=== PATIENT | male | born 1995 | race Caucasian/White ===

== ENCOUNTER 2016-06-30 05:20 | Emergency (ER) | payer SELFPAY ==
[~2016-06-30] VITALS: Ht 180.3 cm; Wt 127.0 kg
[~2016-06-30 05:20] MED LIST: ALBU8.5H2 IH; AZIT-21 PO; AZIT250T5 PO; CEPH500C PO; CEPH500T PO; CIPR500T78 PO; CYCL10TA9 PO; HYDR-3454 PO; HYDR-3714 PO; HYDR-707 PO; IBP800T PO; IBUP800T26 PO; LACT1CAP74 PO; LEVO500T78 PO; METR500T PO; ONDA-42 SL; PRD20T PO; SULF1TAB38 PO; TRAM-21 PO; TRAM50TA2 PO
[2016-06-30] MEDS ORDERED: SUMAtriptan 50 MG (IMITREX) TAB PO ONE (06:30)
[2016-06-30] MEDS ORDERED: TETRACAINE 0.5% OPHTH SOLN 4 ML BTL (SINGLE DOSE ONLY) OP ONE (06:30)
--- NOTE | 2016-06-30 06:54 | ED Headache ---
General Chief Complaint: Eye Problems Stated Complaint: LEFT EYE PAIN,VISION BLURRY,TENDER TO TOUCH Nursing Triage Note: pt reports pain/pressure behind left eye starting wednesday. no known injury. while at work tonight, he began having blurry vision in left eye intermittently. Nursing Sepsis Screen: No Definite Risk Source: patient Exam Limitations: no limitations History of Present Illness Time seen by provider: 06:10 Initial Comments Here with report of 2 days of pain behind the left eye and headache. States the pain waxes and wanes. Described as a pressure pushing out behind the left eye. When the pain is worse he reports that he has some vision changes. Did take an aspirin which helped a little. 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 Currently he does not have blurred vision. Timing/Duration: waxing and waning, other (2 days) Severity/Quality: moderate, pressure Location: occipital Prior Headaches/Recent Trauma: occasional headaches Modifying Factors: worse with exposure to light, improves with rest Associated Symptoms: No confusion, No facial pain, No fever/chills, No nausea/ vomiting, No nasal congestion, No stiff neck, No weakness Allergies and Home Medications Allergies Coded Allergies: No Known Drug Allergies (Unverified , 06/30/16) Home Medications No Active Prescriptions or Reported Meds Constitutional: see HPI, No chills, No fever Eyes: See HPI, Blurred Vision, Pain Ears, Nose, Mouth, Throat: no symptoms reported Respiratory: no symptoms reported Cardiovascular: no symptoms reported Gastrointestinal: no symptoms reported Musculoskeletal: no symptoms reported Psychiatric/Neurological: See HPI, Headache, Denies Weakness Past Boyegcw-Jwdvcq-Ptrgtw Hx Patient Social History Alcohol Use: Occasionally Uses Recreational Drug Use: No Smoking Status: Never a Smoker 2nd Hand Smoke Exposure: No Recent Foreign Travel: No Contact w/Someone Who Travel: No Recent Infectious Disease Expo: No Recent Hopitalizations: Yes Immunizations Up To Date Tetanus Booster (TDap): Unknown Seasonal Allergies Seasonal Allergies: No Surgeries HX Surgeries: Yes (PYLORIC STENOSIS, BILAT KNEE SCOPE, COLONSCOPY) Surgeries: Abdominal, Orthopedic, Tonsillectomy Respiratory Hx Respiratory Disorders: No Cardiovascular Hx Cardiac Disorders: No Cardiac Disorders: Hypertension Neurological Hx Neurological Disorders: No Reproductive System Hx Reproductive Disorders: No Genitourinary Hx Genitourinary Disorders: No Gastrointestinal Hx Gastrointestinal Disorders: Yes Gastrointestinal Disorders: Colitis, Gastroesophageal Reflux Musculoskeletal Hx Musculoskeletal Disorders: No Endocrine Hx Endocrine Disorders: No HEENT HX ENT Disorders: No Cancer Hx Cancer: No Psychosocial Hx Psychiatric Problems: No Integumentary HX Skin/Integumentary Disorder: No Blood Transfusions Hx Blood Disorders: No Family Medical History Significant Family History: Hypertension, Other Conditions/Hx Physical Exam Vital Signs Vital Sign - Last 12Hours 06/30/16 05:34 Temp 97.2 Pulse 88 Resp 16 B/P (MAP) 132/89 Capillary Refill : Less Than 3 Seconds General Appearance: WD/WN, no apparent distress HEENT: PERRL/EOMI, TMs normal, pharynx normal Neck: full range of motion, supple Cardiovascular: regular rate, rhythm, no murmur Respiratory: lungs clear, normal breath sounds Gastrointestinal: non tender, soft Psychiatric: alert, oriented x 3 Crainal Nerves: normal hearing, normal speech, PERRL Coordination/Gait: normal gait Motor/Sensory: no motor deficit, no sensory deficit Skin: normal color, warm/dry Progress/Results/Core Measures Results/Orders My Orders Orders - LISA FERNANDEZ MD Sumatriptan Tablet (Imitrex Tablet) (06/30/16 06:30) Tetracaine 0.5% Ophth Dorota Sdv (Tetracai (06/30/16 06:30) Medications Given in ED Current Medications Medications Dose Ordered Sig/Froylan Route Start Time Stop Time Status Last Admin Dose Admin Sumatriptan Succinate 50 mg ONCE ONCE PO 06/30/16 06:30 06/30/16 06:31 DC 06/30/16 06:34 50 MG Tetracaine HCl 1 OR 2 DROPS INTO AFFEC... ONCE ONCE OP 06/30/16 06:30 06/30/16 06:31 DC 06/30/16 06:35 4 ML Vital Signs/I&O Vital Sign - Last 12Hours 06/30/16 05:34 Temp 97.2 Pulse 88 Resp 16 B/P (MAP) 132/89 Blood Pressure Mean: 103 Progress Note : Progress Note Seen and evaluated. Visual acuity shows 20/20 with both eyes and 20/40 with each individual. Rodrigo-Pen evaluation shows pressure to be [address]. Patient did have CT head and orbits ordered and that is pending. Imitrex 50 mg by mouth given. Monitor patient. 0712: States pain is actually much better. Discharged home with return precautions. Patient verbalize understanding instructions and agreement with plan. Diagnostic Imaging Diagonstic Imaging: CT Plain Films/CT/US/NM/MRI: head Comments No intracranial hemorrhage, mass effect or edema. No evidence of acute cortical stroke. Visualized mastoid air cells are clear. Focal areas of mild mucosal thickening in the paranasal sinuses. Reviewed: Reviewed [place] Hawk Study, Reviewed by Me Diagonstic Imaging: CT Plain Films/CT/US/NM/MRI: other (orbits) Comments The orbits are unremarkable for a noncontrast CT. The ocular globes appear intact. No evidence for fracture. Areas of mild mucosal thickening in the paranasal sinuses. Reviewed: Reviewed [place] Hawk Study, Reviewed by Me Departure Impression Impression: Primary Impression: Migraine headache Qualified Codes: G43.009 - Migraine without aura, not intractable, without status migrainosus Disposition: 01 HOME, SELF-CARE Condition: Improved Departure-Patient Inst. Decision time for Depature: 07:13 Referrals: [facility] (PCP/Family) Primary Care Physician Patient Instructions: Migraine Headache (DC) Add. Discharge Instructions: All discharge instructions reviewed with patient and/or family. Voiced understanding. Take ibuprofen 800 mg every 8 hours as needed for headache or pain. You should also start taking Claritin or the generic loratadine 10 mg tablet daily as needed for allergy symptoms. Follow up with your DrSarbjit in a few days for recheck. Return for worse pain, fever, vomiting, weakness, breathing problems or other concerns as needed. Scripts No Active Prescriptions or Reported Meds Work/School Note: Work Release Form Date Seen in the Emergency Department: Jun 30, 2016 Return to Work: Jun 30, 2016 Restrictions: No Restrictions LISA FERNANDEZ MD Jun 30, 2016 06:54
[2016-06-30 07:20] VITALS: BP 140/86
--- NOTE | 2016-06-30 07:41 | Diagnostic Imaging Report ---
PROCEDURE: CT orbit without. TECHNIQUE: Multiple contiguous axial images were obtained through the facial bones without the use of intravenous contrast. INDICATION: Left eye pain and pressure. Blurry vision for two days. EXAMINATION: CT of the orbits dated 06/22/2016. FINDINGS: There are no fractures appreciated. Visualized osseous structures are well aligned. There are no air-fluid levels within the sinuses. Minimal mucosal thickening seen throughout the paranasal sinuses. Visualized mastoid air cells are clear. Both orbits and globes appear intact and unremarkable. No surrounding fat stranding is appreciated. IMPRESSION: 1. Minimal mucosal thickening consistent with chronic sinus disease with no acute process appreciated. Given history of blurry vision if there is continued clinical question, MRI of the brain could provide further characterization if clinically warranted. Findings agree with the preliminary report. Dictated by: Dictated on workstation # [id number]
--- NOTE | 2016-06-30 08:00 | Diagnostic Imaging Report ---
PROCEDURE: CT head without contrast. TECHNIQUE: Multiple contiguous axial images were obtained through the brain without the use of intravenous contrast. INDICATION: Left eye pain and pressure for several days. Blurry vision. EXAMINATION: CT brain without contrast 06/30/2016 COMPARISON: 08/13/2010 FINDINGS: FINDINGS: Multiple axial images of the brain without contrast. There is no evidence for acute hemorrhage or infarct. There is no mass, mass effect, midline shift or hydrocephalus. The paranasal sinuses and mastoid air cells demonstrate no acute abnormality. IMPRESSION: No acute intracranial process. Findings agree with the preliminary report. Dictated by: Dictated on workstation # [id number]
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
--- OUTSIDE RECORDS SUMMARY | 2016-07-14 19:50 | XMS REPORT ---
Author Author ANTOINE ALEXANDER [facility] Address Unknown Care Team Providers Care Poultry Hanger Name Role Phone ANTOINE ALEXANDER Unavailable PROBLEMS Type Condition ICD9-CM Code [id number] Code Onset Dates Condition Status SNOMED Code Problem Urinary frequency 788.41 Active 154706758 Problem Other general medical examination for administrative purposes V70.3 Active 89461523 Problem Pain in joint, forearm 719.43 Active 856058602 Assessment Dental examination Z01.20 Feb, Active 931438851 Problem Blood in stool 578.1 Active 319378124 Problem Unspecified ulcerative colitis 556.9 Active [id number] ALLERGIES Substance Reaction Event Type Date Status N.K.D.A. Unknown Non Drug Allergy Feb, Unknown SOCIAL HISTORY No smoking Hx information available PLAN OF CARE VITAL SIGNS Blood pressure systolic 129 mmHg 2016-02-13 Blood pressure diastolic 89 mmHg 2016-02-13 MEDICATIONS Medication Instructions Dosage Frequency Start Date End Date Duration Status Amoxicillin 500 MG Orally Three times a day 1 capsule 8h 7 days Active RESULTS No Results PROCEDURES Procedure Date Ordered Related Diagnosis Body Site LTD ORAL EVALUATION - PROBLEM FOCUS Feb 13, 2016 PANORAMIC FILM SEE ALSO CODE 08702 Feb 13, 2016 IMMUNIZATIONS No Known Immunizations
== END 2016-06-30 07:22 | disposition home or self-care (01) ==
LOC: EDUNIT# 05:20 → ER 05:24
DX: G43.909 Migraine, unspecified, not intractable, without status migrainosus (principal); I10 Essential (primary) hypertension
CPT/HCPCS: 70450; 70480; 99282

== ENCOUNTER 2016-08-12 01:54 | Emergency (ER) | payer OTHER ==
[~2016-08-12] VITALS: Ht 180.3 cm; Wt 127.0 kg
--- NOTE | 2016-08-12 03:56 | ED GU-Male ---
General Chief Complaint: -Male Stated Complaint: SLIPPED AT WORK & HIT PRIVATE PARTS ON MACHINERY Nursing Triage Note: Pt reports caught genitals on bracket at work. Has used an ice pack. Pt states blood in urine. Source: patient Exam Limitations: no limitations History of Present Illness Time seen by provider: 02:00 Initial Comments This 21-year-old young man presents to the emergency room with injury to the scrotum. 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 He slipped and struck his right scrotum on a metal bracket holding pipes. He had immediate pain in the right testicular area. He applied ice which improved the pain but he then urinated blood. He immediately became more concerned and presented to the emergency room. He rates his pain at the right testicle as 7/10. He denies any penile pain. Allergies and Home Medications Allergies Coded Allergies: No Known Drug Allergies (Unverified , 06/30/16) Home Medications No Active Prescriptions or Reported Meds Constitutional: no symptoms reported EENTM: no symptoms reported Respiratory: no symptoms reported Cardiovascular: no symptoms reported Gastrointestinal: no symptoms reported Genitourinary: see HPI Musculoskeletal: no symptoms reported Skin: no symptoms reported Psychiatric/Neurological: No Symptoms Reported Past Emjyjbd-Mxfkzl-Mpltxx Hx Patient Social History Alcohol Use: Occasionally Uses Recreational Drug Use: No Smoking Status: Never a Smoker 2nd Hand Smoke Exposure: No Recent Foreign Travel: No Contact w/Someone Who Travel: No Recent Infectious Disease Expo: No Recent Hopitalizations: Yes Immunizations Up To Date Tetanus Booster (TDap): Unknown Seasonal Allergies Seasonal Allergies: No Surgeries HX Surgeries: Yes (PYLORIC STENOSIS, BILAT KNEE SCOPE, COLONSCOPY, dental) Surgeries: Abdominal, Orthopedic, Tonsillectomy Respiratory Hx Respiratory Disorders: No Cardiovascular Hx Cardiac Disorders: Yes Cardiac Disorders: Hypertension Neurological Hx Neurological Disorders: No Reproductive System Hx Reproductive Disorders: No Genitourinary Hx Genitourinary Disorders: No Gastrointestinal Hx Gastrointestinal Disorders: Yes Gastrointestinal Disorders: Colitis (ulcerative colitis), Gastroesophageal Reflux Musculoskeletal Hx Musculoskeletal Disorders: No Endocrine Hx Endocrine Disorders: No HEENT HX ENT Disorders: No Cancer Hx Cancer: No Psychosocial Hx Psychiatric Problems: No Integumentary HX Skin/Integumentary Disorder: No Blood Transfusions Hx Blood Disorders: No Family Medical History Significant Family History: Hypertension, Other Conditions/Hx Physical Exam Vital Signs Vital Sign - Last 12Hours 08/12/16 02:07 Temp 98.8 Pulse 98 Resp 20 B/P (MAP) 117/101 Pulse Ox 98 O2 Delivery Room Air Capillary Refill : Less Than 3 Seconds General Appearance: WD/WN, no apparent distress HEENT: normal ENT inspection Cardiovascular: regular rate, rhythm, no edema, no murmur Respiratory: lungs clear, normal breath sounds, no respiratory distress, no accessory muscle use Gastrointestinal: normal bowel sounds, non tender, soft Male: no hernia, No erythema, No inguinal tenderness, testicular tenderness ( right), other (penis normal to inspection and nontender) Extremities: normal inspection Neurologic/Psychiatric: classification clerk II-XII nml as tested, no motor/sensory deficits, alert, normal mood/affect, oriented x 3 Skin: normal color, warm/dry Progress/Results/Core Measures Results/Orders Lab Results Laboratory Tests Test 08/12/16 04:10 Range/Units Urine Color YELLOW Urine Clarity CLEAR Urine pH 5 5-9 Urine Specific Hubbard 1.015 L 1.016-1.022 Urine Protein NEGATIVE NEGATIVE Urine Glucose (UA) NEGATIVE NEGATIVE Urine Ketones NEGATIVE NEGATIVE Urine Nitrite NEGATIVE NEGATIVE Urine Bilirubin NEGATIVE NEGATIVE Urine Urobilinogen NORMAL NORMAL MG/DL Urine Leukocyte Esterase NEGATIVE NEGATIVE Urine RBC (Auto) NEGATIVE NEGATIVE Urine RBC NONE /HPF Urine WBC NONE /HPF Urine Squamous Epithelial Cells 0-2 /HPF Urine Crystals NONE /LPF Urine Bacteria NEGATIVE /HPF Urine Casts NONE /LPF Urine Mucus NEGATIVE /LPF Urine Culture Indicated NO My Orders Orders - MORENA PALACIOS MD Ua Culture If Indicated (08/12/16 02:10) Us Scrotum (Testicle) 64075 (08/12/16 02:10) Acetaminophen Tablet (Tylenol Tablet) (08/12/16 05:00) Ibuprofen Tablet (Motrin Tablet) (08/12/16 05:00) Vital Signs/I&O Vital Sign - Last 12Hours 08/12/16 08/12/16 08/12/16 08/12/16 02:07 04:55 04:55 05:00 Temp 98.8 98.8 98.8 98.8 Pulse 98 83 Resp 20 18 B/P (MAP) 117/101 Pulse Ox 98 100 O2 Delivery Room Air Blood Pressure Mean: 106 Progress Note : Progress Note Imaging revealed no problems with the scrotum. Urine showed no evidence of hematuria. Patient was treated with Tylenol and ibuprofen before dismissal. Diagnostic Imaging Diagonstic Imaging: Ultrasound Plain Films/CT/US/NM/MRI: other (scrotum) Comments Discussed with the auto body technician. Ultrasound unremarkable. Departure Impression Impression: Primary Impression: Testicular injury Qualified Codes: S39.94XA - Unspecified injury of external genitals, initial encounter Disposition: 01 HOME, SELF-CARE Condition: Improved Departure-Patient Inst. Decision time for Depature: 04:51 Referrals: [facility] (PCP/Family) Primary Care Physician Patient Instructions: Contusion (DC) Add. Discharge Instructions: Return to care if symptoms worsen, you have difficulty urinating, or you begin urinating blood again. Drink plenty of clear liquids. You may take Tylenol and /or ibuprofen for pain. All discharge instructions reviewed with patient and/or family. Voiced understanding. Scripts No Active Prescriptions or Reported Meds MORENA PALACIOS MD August 12, 2016 03:56
[2016-08-12 04:23] LABS: BILIRUBIN,URINE NEGATIVE (NEGATIVE); KETONES,URINE NEGATIVE (NEGATIVE); LEUKOCYTE ESTERASE ,URINE NEGATIVE (NEGATIVE); NITRITE,URINE NEGATIVE (NEGATIVE); PH,URINE 5 (5-9); PROTEIN,URINE NEGATIVE (NEGATIVE); UROBILINOGEN,URINE NORMAL (NORMAL)
[2016-08-12 04:36] LABS: SQUAMOUS EPITHELIAL CELL,UR 0-2 /HPF
[2016-08-12 05:00] VITALS: BP 138/95
[2016-08-12] MEDS ORDERED: ACETAMINOPHEN 500 MG TAB (TYLENOL) PO ONE (05:00)
[2016-08-12] MEDS ORDERED: IBUPROFEN 800 MG (MOTRIN) TAB PO ONE (05:00)
--- NOTE | 2016-08-12 08:32 | Diagnostic Imaging Report ---
INDICATION: Blunt trauma to right testicle. FINDINGS: The testicles are homogeneous in appearance. Right testicle measures 3.8 x 2.5 x 2.8 cm. Left testicle measures 4 x 2.1 x 2.5 cm. There is normal blood flow to both testes. The epididymides show small epididymal cysts bilaterally measuring 5 mm. No hypervascularity. No evidence of hydrocele or varicocele. IMPRESSION: No evidence of traumatic changes to the right testicle. These findings are concordant with the preliminary report. Dictated by: Dictated on workstation # [id number]
== END 2016-08-12 05:00 | disposition home or self-care (01) ==
LOC: EDUNIT# 01:54 → ER 01:59
DX: S39.94XA Unspecified injury of external genitals, initial encounter (principal); R31.9 Hematuria, unspecified; W22.09XA Striking against other stationary object, initial encounter; Y92.59 Other trade areas as the place of occurrence of the external cause; Y99.0 Civilian activity done for income or pay
CPT/HCPCS: 76870; 81000; 99283

== ENCOUNTER 2016-09-08 14:38 | Emergency (ER) | payer SELFPAY ==
[~2016-09-08] VITALS: Ht 180.3 cm; Wt 127.0 kg
[2016-09-08] MEDS ORDERED: ASPIRIN 81 MG CHEW (CHILDREN'S ASA) PO ONE (15:00)
--- NOTE | 2016-09-08 15:04 | ED Chest Pain ---
General Chief Complaint: Chest Pain Stated Complaint: CHEST PAIN/TIGHTNESS,SOA Nursing Triage Note: PT REPORTS CHEST PAIN/PRESSURE STARTING LAST EVENING AT WORK. INTIALLY THOUGHT IT COULD BE DEHYDRATION, AND THROUGHOUT THE NIGHT, DECREASED. AT APPROX 0100, PT BECAME DIAPHORETIC, HAD SHAKING, AND FELT INCREASE IN CHEST TIGHTNESS. REPORTS USUALLY WALKS SEVERAL MILES FOR WORK, BUT BECAME SOA WITH AMBULATION TODAY. PT DIAGNOSED WITH "SIGNIFICANTLY' HIGH CHOLESTEROL ON WEDNESDAY AND IS SUPPOSED TO SEE THE DR PINTO TOMORROW. Nursing Sepsis Screen: No Definite Risk Source: patient History of Present Illness Time seen by provider: 14:48 Initial Comments PT ARRIVES VIA POV FROM HOME STATES HE BEGAN TO HAVE CONSTANT CHEST TIGHTNESS WHILE AT WORK AT 0100 TODAY-- WORKS AT [employer] STATES HE HAS A CONSTANT PRESSURE IN CHEST, AND WITH ANY EXERTION THE TIGHTNESS BECOMES A PAIN AND HE GETS SHORT OF BREATH ALSO HAD SOME DIZZINESS AND THEN HIS ARMS AND HANDS WERE TREMBLING AND SHAKING LAST NIGHT WELL NO SWEATS WITH PAIN DID HAVE NAUSEA AND VOMITED X 1 AT 2300, BUT WAS NOT HAVING THESE SYMPTOMS AT THAT TIME NO HISTORY OF SIMILAR PT STATES HE WAS DX WITH HIGH CHOLESTEROL ON Wednesday09/04/16, AND HAS A FOLLOW UP APPOINTMENT TOMORROW WITH DR. ROJAS AT [facility]. PCP: DR. Boni ROJAS AT [facility] Allergies and Home Medications Allergies Coded Allergies: No Known Drug Allergies (Unverified , 06/30/16) Home Medications No Active Prescriptions or Reported Meds Review of Systems Constitutional: see HPI, dizziness EENTM: No Symptoms Reported Respiratory: See HPI, SOA With Exertion Cardiovascular: See HPI, Chest Pain, Denies Edema, Denies Irregular Heart Rate , Lightheadedness Gastrointestinal: See HPI, Denies Abdominal Pain, Nausea, Vomiting Genitourinary: No Symptoms Reported Musculoskeletal: no symptoms reported Skin: no symptoms reported Psychiatric/Neurological: See HPI Endocrine: No Symptoms Reported Hematologic/Lymphatic: No Symptoms Reported Past Qsrjsad-Ovinoz-Vghjsf Hx Patient Social History Alcohol Use: Rarely Uses Recreational Drug Use: No Smoking Status: Never a Smoker 2nd Hand Smoke Exposure: No Recent Foreign Travel: No Contact w/Someone Who Travel: No Recent Infectious Disease Expo: No Recent Hopitalizations: No Immunizations Up To Date Tetanus Booster (TDap): Unknown Seasonal Allergies Seasonal Allergies: No Surgeries HX Surgeries: Yes (PYLORIC STENOSIS, BILAT KNEE SCOPE, COLONSCOPY, DENTAL CAPS) Surgeries: Abdominal, Orthopedic, Tonsillectomy Respiratory Hx Respiratory Disorders: No Cardiovascular Hx Cardiac Disorders: Yes Cardiac Disorders: High Cholesterol, Hypertension Neurological Hx Neurological Disorders: No Reproductive System Hx Reproductive Disorders: No Genitourinary Hx Genitourinary Disorders: No Gastrointestinal Hx Gastrointestinal Disorders: Yes (ULCERATIVE COLITIS) Gastrointestinal Disorders: Colitis, Gastroesophageal Reflux Musculoskeletal Hx Musculoskeletal Disorders: No Endocrine Hx Endocrine Disorders: No HEENT HX ENT Disorders: No Cancer Hx Cancer: No Psychosocial Hx Psychiatric Problems: No Integumentary HX Skin/Integumentary Disorder: No Blood Transfusions Hx Blood Disorders: No Family Medical History Significant Family History: Hypertension, Other Conditions/Hx Physical Exam Vital Signs Vital Sign - Last 12Hours 09/08/16 14:46 Temp 99.4 Pulse 92 Resp 20 Pulse Ox 97 O2 Delivery Room Air Capillary Refill : Less Than 3 Seconds General Appearance: No Apparent Distress, WD/WN, Obese, Other (MALODOROUS. DOES NOT APPEAR TO BE IN ANY DISCOMFORT OR DISTRESS AT THIS TIME. ) HEENT: PERRL/EOMI Neck: Full Range of Motion, Normal Inspection, Non Tender, Supple Respiratory: Chest Non Tender, Normal Breath Sounds, No Accessory Muscle Use, No Respiratory Distress Cardiovascular: Regular Rate, Rhythm, No Edema, No JVD, No Murmur, Normal Peripheral Pulses Gastrointestinal: Non Tender, Soft Extremity: Normal Capillary Refill, Normal Inspection, Normal Range of Motion, Non Tender, No Calf Tenderness, No Pedal Edema Neurologic/Psychiatric: Alert, Oriented x3, No Motor/Sensory Deficits, Normal Mood/Affect, trade clerk II-XII Norm as Tested Skin: Normal Color, Warm/Dry Progress/Results/Core Measures Results/Orders Lab Results Laboratory Tests Test 09/08/16 15:10 Range/Units White Blood Count 7.6 4.3-11.0 10^3/uL Red Blood Count 4.97 4.35-5.85 10^6/uL Hemoglobin 14.5 13.3-17.7 G/DL Hematocrit 42 40-54 % Mean Corpuscular Volume 84 80-99 FL Mean Corpuscular Hemoglobin 29 25-34 PG Mean Corpuscular Hemoglobin Concent 35 32-36 G/DL Red Cell Distribution Width 13.9 10.0-14.5 % Platelet Count 227 130-400 10^3/uL Mean Platelet Volume 11.1 H 7.4-10.4 FL Neutrophils (%) (Auto) 64 42-75 % Lymphocytes (%) (Auto) 25 12-44 % Monocytes (%) (Auto) 10 0-12 % Eosinophils (%) (Auto) 1 0-10 % Basophils (%) (Auto) 0 0-10 % Neutrophils # (Auto) 4.9 1.8-7.8 X 10^3 Lymphocytes # (Auto) 1.9 1.0-4.0 X 10^3 Monocytes # (Auto) 0.8 0.0-1.0 X 10^3 Eosinophils # (Auto) 0.1 0.0-0.3 10^3/uL Basophils # (Auto) 0.0 0.0-0.1 10^3/uL Prothrombin Time 12.9 12.2-14.7 SEC INR Comment 1.0 0.8-1.4 Activated Partial Thromboplast Time 32 24-35 SEC Sodium Level 142 135-145 MMOL/L Potassium Level 3.6 3.6-5.0 MMOL/L Chloride Level 109 H 98-107 MMOL/L Carbon Dioxide Level 26 21-32 MMOL/L Anion Gap 7 5-14 MMOL/L Blood Urea Nitrogen 12 7-18 MG/DL Creatinine 0.80 0.60-1.30 MG/DL Estimat Glomerular Filtration Rate > 60 BUN/Creatinine Ratio 15 Glucose Level 119 H 70-105 MG/DL Calcium Level 9.4 8.5-10.1 MG/DL Total Bilirubin 0.7 0.1-1.0 MG/DL Aspartate Amino Transf (AST/SGOT) 21 5-34 U/L Alanine Aminotransferase (ALT/SGPT) 33 0-55 U/L Alkaline Phosphatase 75 40-136 U/L Total Creatine Kinase 73 30-200 U/L Creatine Kinase MB 0.8 <6.6 NG/ML Troponin I < 0.30 <0.30 NG/ML B-Type Natriuretic Peptide 17.4 <100.0 PG/ML Total Protein 6.9 6.4-8.2 G/DL Albumin 4.0 3.2-4.5 G/DL Amylase Level 67 25-125 U/L Lipase 22 8-78 U/L My Orders Orders - MARGE TALLEY DO Ekg Tracing (09/08/16 14:49) Monitor-Rhythm Ecg Trace Only (09/08/16 14:49) Amylase (09/08/16 14:57) Cbc With Automated Diff (09/08/16 14:57) Comprehensive Metabolic Panel (09/08/16 14:57) Creatine Kinase (09/08/16 14:57) Creatine Kinase Mb (09/08/16 14:57) Lipase (09/08/16 14:57) Partial Thromboplastin Time (09/08/16 14:57) Protime With Inr (09/08/16 14:57) Troponin I (09/08/16 14:57) Aspirin Chewable Tablet (Baby Aspirin Ch (09/08/16 15:00) BNP (09/08/16 14:57) Saline Lock/Iv-Start (09/08/16 14:57) Chest Pa/Lat (2 View) (09/08/16 15:04) Ketorolac Injection (Toradol Injection) (09/08/16 16:15) Hydroxyzine Oral (Vistaril Capsule) (09/08/16 16:15) Medications Given in ED Current Medications Medications Dose Ordered Sig/Froylan Route Start Time Stop Time Status Last Admin Dose Admin Aspirin 324 mg ONCE ONCE PO 09/08/16 15:00 09/08/16 15:01 DC 09/08/16 15:17 324 MG Vital Signs/I&O Vital Sign - Last 12Hours 09/08/16 09/08/16 14:46 15:00 Temp 99.4 Pulse 92 Resp 20 B/P (MAP) Pulse Ox 97 O2 Delivery Room Air Room Air Progress Note : Progress Note UNEVENTFUL ER STAY SYMPTOMS IMPROVED AT DISMISSAL ECG Initial ECG Impression Time: 14:57 Initial ECG Rate: 79 Initial ECG Rhythm: Normal Sinus Initial ECG Comparisson: Unchanged Diagnostic Imaging Comments CXR--NO ACUTE PROCESS, PER RADIOLOGIST REPORT @ 1540 Reviewed: Reviewed by Me Departure Impression Impression: Primary Impression: Chest pain Additional Impression: Dizziness Disposition: 01 HOME, SELF-CARE Condition: Stable Departure-Patient Inst. Referrals: [facility] (PCP/Family) Primary Care Physician Patient Instructions: Chest Pain That Is Not Caused by the Heart (DC), Dizziness, Nonvertigo, (DC) Add. Discharge Instructions: HOME, REST FOLLOW UP WITH [facility] TOMORROW SCHEDULED All discharge instructions reviewed with patient and/or family. Voiced understanding. Scripts No Active Prescriptions or Reported Meds MARGE TALLEY DO Sep 08, 2016 15:04
[2016-09-08 15:19] LABS: BASOPHILS % (AUTO) 0 % (0-10); EOSINOPHILS # (AUTO) 0.1 10^3/uL (0.0-0.3); EOSINOPHILS % (AUTO) 1 % (0-10); LYMPHOCYTES # (AUTO) 1.9 X 10^3 (1.0-4.0); LYMPHOCYTES % (AUTO) 25 % (12-44); MEAN CORPUSCULAR HEMOGLOBIN 29 PG (25-34); MEAN CORPUSCULAR HGB CONC 35 G/DL (32-36); MEAN CORPUSCULAR VOLUME 84 FL (80-99); MEAN PLATELET VOLUME 11.1 FL (7.4-10.4); MONOCYTES # (AUTO) 0.8 X 10^3 (0.0-1.0); MONOCYTES % (AUTO) 10 % (0-12); NEUTROPHILS # (AUTO) 4.9 X 10^3 (1.8-7.8); NEUTROPHILS % (AUTO) 64 % (42-75); PLATELET COUNT 227 10^3/uL (130-400); RED BLOOD COUNT 4.97 10^6/uL (4.35-5.85); RED CELL DISTRIBUTION WIDTH 13.9 % (10.0-14.5); WHITE BLOOD COUNT 7.6 10^3/uL (4.3-11.0)
[2016-09-08 15:32] LABS: PROTHROMBIN TIME PATIENT 12.9 SEC (12.2-14.7)
--- NOTE | 2016-09-08 15:36 | Diagnostic Imaging Report ---
PA and lateral views of the chest Indication: Chest pain Findings: The lungs are clear. The heart size is normal. There is no effusion or pneumothorax The mediastinum and vijay appear unremarkable. Impression: Unremarkable study. Dictated by: Dictated on workstation # [id number]
[2016-09-08 15:42] LABS: ALANINE AMINOTRANSFERASE 33 U/L (0-55); AMYLASE 67 U/L (25-125); ANION GAP 7 MMOL/L (5-14); ASPARTATE AMINO TRANSFERASE 21 U/L (5-34); BILIRUBIN,TOTAL 0.7 MG/DL (0.1-1.0); BLOOD UREA NITROGEN 12 MG/DL (7-18); BUN/CREATININE RATIO 15; CALCIUM 9.4 MG/DL (8.5-10.1); CARBON DIOXIDE 26 MMOL/L (21-32); CHLORIDE 109 MMOL/L (98-107); CREATINE KINASE 73 U/L (30-200); GFR ESTIMATED > 60; GLUCOSE 119 MG/DL (70-105); LIPASE 22 U/L (8-78); POTASSIUM 3.6 MMOL/L (3.6-5.0); SODIUM 142 MMOL/L (135-145); TOTAL PROTEIN 6.9 G/DL (6.4-8.2)
[2016-09-08 15:49] LABS: TROPONIN I < 0.30 NG/ML (<0.30)
[2016-09-08] MEDS ORDERED: hydrOXYzine (VISTARIL) 25 MG CAP PO ONE (16:15)
[2016-09-08] MEDS ORDERED: KETOROLAC 30 MG/ML VIAL IVP ONE (16:15)
[2016-09-08 16:54] VITALS: BP 115/67
== END 2016-09-08 16:59 | disposition home or self-care (01) ==
LOC: EDUNIT# 14:38 → ER 14:41
DX: R07.89 Other chest pain (principal); R42 Dizziness and giddiness; I10 Essential (primary) hypertension
CPT/HCPCS: 36415; 71020; 80053; 82150; 82550; 82553; 83690; 83880; 84484; 85025; 85610; 85730; 93005; 93041

== ENCOUNTER 2016-09-12 04:48 | Emergency (ER) | payer BC, OTHER ==
[~2016-09-12] VITALS: Ht 180.3 cm; Wt 127.0 kg
[2016-09-12] MEDS ORDERED: SUMA50TA2 (04:55)
[2016-09-12] MEDS ORDERED: SIMV20TA3 PO (04:55)
[2016-09-12] MEDS ORDERED: NS IV 1000 ML 1,000 ML IV ONE (05:02)
[2016-09-12] MEDS ORDERED: ASPIRIN 81 MG CHEW (CHILDREN'S ASA) PO ONE (05:15)
[2016-09-12 05:17] LABS: BASOPHILS % (AUTO) 0 % (0-10); EOSINOPHILS # (AUTO) 0.1 10^3/uL (0.0-0.3); EOSINOPHILS % (AUTO) 1 % (0-10); LYMPHOCYTES # (AUTO) 2.5 X 10^3 (1.0-4.0); LYMPHOCYTES % (AUTO) 22 % (12-44); MEAN CORPUSCULAR HEMOGLOBIN 29 PG (25-34); MEAN CORPUSCULAR HGB CONC 35 G/DL (32-36); MEAN CORPUSCULAR VOLUME 82 FL (80-99); MONOCYTES % (AUTO) 9 % (0-12); NEUTROPHILS # (AUTO) 7.8 X 10^3 (1.8-7.8); NEUTROPHILS % (AUTO) 68 % (42-75); PLATELET COUNT 249 10^3/uL (130-400); RED BLOOD COUNT 5.17 10^6/uL (4.35-5.85); RED CELL DISTRIBUTION WIDTH 13.5 % (10.0-14.5); WHITE BLOOD COUNT 11.4 10^3/uL (4.3-11.0)
[2016-09-12 05:30] LABS: PROTHROMBIN TIME PATIENT 12.8 SEC (12.2-14.7)
[2016-09-12 05:37] LABS: ALANINE AMINOTRANSFERASE 37 U/L (0-55); ALBUMIN 4.4 G/DL (3.2-4.5); ANION GAP 13 MMOL/L (5-14); ASPARTATE AMINO TRANSFERASE 24 U/L (5-34); BILIRUBIN,TOTAL 0.6 MG/DL (0.1-1.0); BLOOD UREA NITROGEN 19 MG/DL (7-18); BUN/CREATININE RATIO 21; CALCIUM 9.9 MG/DL (8.5-10.1); CARBON DIOXIDE 20 MMOL/L (21-32); CHLORIDE 106 MMOL/L (98-107); CREATININE SERUM 0.92 MG/DL (0.60-1.30); GFR ESTIMATED > 60; GLUCOSE 94 MG/DL (70-105); POTASSIUM 3.4 MMOL/L (3.6-5.0); SODIUM 139 MMOL/L (135-145); TOTAL PROTEIN 7.3 G/DL (6.4-8.2)
[2016-09-12 05:45] LABS: MYOGLOBIN SERUM 33.5 NG/ML (10.0-92.0)
--- NOTE | 2016-09-12 06:18 | ED Chest Pain ---
General Chief Complaint: General Problems/Pain Stated Complaint: CHEST PRESSURE Nursing Triage Note: patient reports working and bending over and when he stood up he got lightheaded and felt a tingling in his chest and lips Nursing Sepsis Screen: No Definite Risk Source: patient Exam Limitations: no limitations (MIRIAM HUBER) History of Present Illness Time seen by provider: 06:16 Initial Comments Patient came in the ER today because he is having some more chest pain and mild shortness of breath. No nausea, vomiting, diaphoresis. He is told that he has high cholesterol. He was seen in the ER 3 days ago for the same situation was told he had metabolic syndrome was nothing wrong with his heart found on the workup at that time but to return to the ER if he had these symptoms again. He was having a lot of anxiety at work is working 2 jobs is very concerned about his new diagnosis of metabolic syndrome and he has been trying to change his diet to lose weight and be on a calorie restriction of about 3500 tatianna a day. He does not have any pain in his calves is very active and he is shortness of breath is improved since getting here. He was having numbness and tingling in his feet and fingers at the time of his attack that also has resolved at this time. He states his mother's side has a lot of heart disease on and his dad has sarcoidosis and heart disease. No one in his family has had a heart attack or heart problems before the age of 40. No history of pediatric sudden in his family. (MIRIAM HUBER) Allergies and Home Medications Allergies Coded Allergies: No Known Drug Allergies (Unverified , 06/30/16) Home Medications Simvastatin 20 Mg Tablet, 20 MG PO, (Reported) Sumatriptan Succinate 50 Mg Tablet, #9 (Reported) Review of Systems Constitutional: no symptoms reported EENTM: No Symptoms Reported Respiratory: See HPI Cardiovascular: See HPI Gastrointestinal: No Symptoms Reported Genitourinary: No Symptoms Reported Musculoskeletal: no symptoms reported Skin: no symptoms reported Psychiatric/Neurological: No Symptoms Reported Endocrine: No Symptoms Reported (MORENA PALACIOS MD) Past Wnvljbl-Radbbg-Dngsro Hx Patient Social History Alcohol Use: Rarely Uses Recreational Drug Use: No Smoking Status: Never a Smoker 2nd Hand Smoke Exposure: No Recent Foreign Travel: No Contact w/Someone Who Travel: No Recent Infectious Disease Expo: No Recent Hopitalizations: No (MIRIAM HUBER) Immunizations Up To Date Tetanus Booster (TDap): Unknown (MIRIAM HUBER) Seasonal Allergies Seasonal Allergies: No (MIRIAM HUBER) Surgeries HX Surgeries: Yes (PYLORIC STENOSIS, BILAT KNEE SCOPE, COLONSCOPY, DENTAL CAPS) Surgeries: Abdominal, Orthopedic, Tonsillectomy (MIRIAM HUBER) Respiratory Hx Respiratory Disorders: No (MIRIAM HUBER) Hx Respiratory Disorders: No (MORENA PALACIOS MD) Cardiovascular Hx Cardiac Disorders: Yes Cardiac Disorders: High Cholesterol, Hypertension (MIRIAM HUBER) Hx Cardiac Disorders: Yes Cardiac Disorders: High Cholesterol, Hypertension (MORENA PALACIOS MD) Neurological Hx Neurological Disorders: No (MIRIAM HUBER) Hx Neurological Disorders: Yes Neurological Disorders: Headaches /Migraines (MORENA PALACIOS MD) Reproductive System Hx Reproductive Disorders: No (MIRIAM HUBER) Genitourinary Hx Genitourinary Disorders: No (MIRIAM HUBER) Hx Genitourinary Disorders: No (MORENA PALACIOS MD) Gastrointestinal Hx Gastrointestinal Disorders: Yes (ULCERATIVE COLITIS) Gastrointestinal Disorders: Colitis, Gastroesophageal Reflux (MIRIAM HUBER) Hx Gastrointestinal Disorders: Yes (Ulcerative colitis) (MORENA PALACIOS MD) Musculoskeletal Hx Musculoskeletal Disorders: No (MIRIAM HUBER) Hx Musculoskeletal Disorders: No (MORENA PALACIOS MD) Endocrine Hx Endocrine Disorders: No (MIRIAM HUBER) Hx Endocrine Disorders: Yes (Metabolic syndrome) (MORENA PALACIOS MD) HEENT HX ENT Disorders: No (MIRIAM HUBER) HX ENT Disorders: No (MORENA PALACIOS MD) Cancer Hx Cancer: No (MIRIAM HUBER) Hx Cancer: No (MORENA PALACIOS MD) Psychosocial Hx Psychiatric Problems: No (MIRIAM HUBER) Hx Psychiatric Problems: No (MORENA PALACIOS MD) Integumentary HX Skin/Integumentary Disorder: No (MIRIAM HUBER) HX Skin/Integumentary Disorder: No (MORENA PALACIOS MD) Blood Transfusions Hx Blood Disorders: No (MIRIAM HUBER) Family Medical History Significant Family History: Hypertension, Other Conditions/Hx (MIRIAM HUBER) Physical Exam Vital Signs Vital Sign - Last 12Hours 09/12/16 09/12/16 04:51 06:38 Temp 98.2 Pulse 103 Resp 24 B/P (MAP) 135/87 Pulse Ox 100 (MORENA PALACIOS MD) Vital Signs Capillary Refill : Less Than 3 Seconds (MIRIAM HUBER) General Appearance: No Apparent Distress, WD/WN HEENT: PERRL/EOMI, Normal ENT Inspection Neck: Normal Inspection Respiratory: Chest Non Tender, Lungs Clear, Normal Breath Sounds, No Accessory Muscle Use, No Respiratory Distress Cardiovascular: No Edema, No Murmur, Tachycardia Gastrointestinal: Normal Bowel Sounds, Non Tender, Soft Extremity: Normal Inspection, Non Tender, No Pedal Edema Neurologic/Psychiatric: Alert, Oriented x3, No Motor/Sensory Deficits, Normal Mood/Affect, hair assistant II-XII Norm as Tested Skin: Normal Color, Warm/Dry (MORENA PALACIOS MD) Progress/Results/Core Measures Results/Orders Lab Results Laboratory Tests Test 09/12/16 05:08 Range/Units White Blood Count 11.4 H 4.3-11.0 10^3/uL Red Blood Count 5.17 4.35-5.85 10^6/uL Hemoglobin 15.0 13.3-17.7 G/DL Hematocrit 43 40-54 % Mean Corpuscular Volume 82 80-99 FL Mean Corpuscular Hemoglobin 29 25-34 PG Mean Corpuscular Hemoglobin Concent 35 32-36 G/DL Red Cell Distribution Width 13.5 10.0-14.5 % Platelet Count 249 130-400 10^3/uL Mean Platelet Volume 11.0 H 7.4-10.4 FL Neutrophils (%) (Auto) 68 42-75 % Lymphocytes (%) (Auto) 22 12-44 % Monocytes (%) (Auto) 9 0-12 % Eosinophils (%) (Auto) 1 0-10 % Basophils (%) (Auto) 0 0-10 % Neutrophils # (Auto) 7.8 1.8-7.8 X 10^3 Lymphocytes # (Auto) 2.5 1.0-4.0 X 10^3 Monocytes # (Auto) 1.0 0.0-1.0 X 10^3 Eosinophils # (Auto) 0.1 0.0-0.3 10^3/uL Basophils # (Auto) 0.0 0.0-0.1 10^3/uL Prothrombin Time 12.8 12.2-14.7 SEC INR Comment 1.0 0.8-1.4 Activated Partial Thromboplast Time 31 24-35 SEC Sodium Level 139 135-145 MMOL/L Potassium Level 3.4 L 3.6-5.0 MMOL/L Chloride Level 106 98-107 MMOL/L Carbon Dioxide Level 20 L 21-32 MMOL/L Anion Gap 13 5-14 MMOL/L Blood Urea Nitrogen 19 H 7-18 MG/DL Creatinine 0.92 0.60-1.30 MG/DL Estimat Glomerular Filtration Rate > 60 BUN/Creatinine Ratio 21 Glucose Level 94 70-105 MG/DL Calcium Level 9.9 8.5-10.1 MG/DL Magnesium Level 2.0 1.8-2.4 MG/DL Total Bilirubin 0.6 0.1-1.0 MG/DL Aspartate Amino Transf (AST/SGOT) 24 5-34 U/L Alanine Aminotransferase (ALT/SGPT) 37 0-55 U/L Alkaline Phosphatase 94 40-136 U/L Myoglobin 33.5 10.0-92.0 NG/ML Troponin I < 0.30 <0.30 NG/ML Total Protein 7.3 6.4-8.2 G/DL Albumin 4.4 3.2-4.5 G/DL (MORENA PALAICOS MD) My Orders Orders - MORENA PALACIOS MD Cbc With Automated Diff (09/12/16 05:02) Magnesium (09/12/16 05:02) Ekg Tracing (09/12/16 05:02) Cardiac Profile 1 (09/12/16 05:02) Comprehensive Metabolic Panel (09/12/16 05:02) Myoglobin Serum (09/12/16 05:02) Protime With Inr (09/12/16 05:02) Partial Thromboplastin Time (09/12/16 05:02) O2 (09/12/16 05:02) Monitor-Rhythm Ecg Trace Only (09/12/16 05:02) Aspirin Chewable Tablet (Baby Aspirin Ch (09/12/16 05:15) Saline Lock/Iv-Start (09/12/16 05:02) Ns Iv 1000 Ml (Sodium Chloride 0.9%) (09/12/16 05:02) Chest Pa/Lat (2 View) (09/12/16 05:02) (MORENA PALACIOS MD) Medications Given in ED Current Medications Medications Dose Ordered Sig/Froylan Route Start Time Stop Time Status Last Admin Dose Admin Aspirin 324 mg ONCE ONCE PO 09/12/16 05:15 09/12/16 05:16 DC 09/12/16 05:15 324 MG Sodium Chloride 1,000 ml @ 0 mls/hr Q0M ONCE IV 09/12/16 05:02 09/12/16 05:04 DC 09/12/16 05:15 1,000 MLS/HR (MORENA PALACIOS MD) Vital Signs/I&O Vital Sign - Last 12Hours 09/12/16 09/12/16 04:51 06:38 Temp 98.2 Pulse 103 86 Resp 24 23 B/P (MAP) 135/87 Pulse Ox 100 (MORENA PALACIOS MD) Blood Pressure Mean: 103 Progress Note : Time: 12:01 Progress Note This patientwas seen and Managed by Dr Smith. Nichole signed off. (MIRIAM HUBER) Progress Note : Progress Note Cardiopulmonary workup was unremarkable. Patient describes a very subtle discomfort on inspiration in his central chest. This started after inhaling while cleaning out material with particulate matter at work. Heart rate improved with IV hydration. Heart rate was in the 80s at the time of dismissal. I suspect the numbness and tingling related to some degree of hyperventilation. (MORENA PALACIOS MD) ECG Initial ECG Impression Date: Sep 12, 2016 Initial ECG Impression Time: 04:45 Initial ECG Rate: 102 Initial ECG Rhythm: S.Tach Initial ECG Intervals: Normal Initial ECG Impression: Normal Comment Sinus tachycardia with no ST elevation or depression. No abnormal intervals or axis deviation. (MORENA PALACIOS MD) Diagnostic Imaging Diagonstic Imaging: Xray Plain Films/CT/US/NM/MRI: chest Comments Chest x-ray viewed by me and compared with prior. No acute abnormalities appreciated. Report not yet available. (MORENA PALACIOS MD) Departure Impression Impression: Primary Impression: Atypical chest pain Additional Impression: Dyspnea Qualified Codes: R06.00 - Dyspnea, unspecified Disposition: HOME, SELF-CARE Condition: Improved Departure-Patient Inst. Decision time for Depature: 06:27 (MORENA PALACIOS MD) Referrals: [facility] (PCP/Family) Primary Care Physician Patient Instructions: Chest Pain Add. Discharge Instructions: Follow-up with your primary care provider as soon as possible. Return to the emergency room if symptoms worsen. Stay well-hydrated. Wear a respirator mask at work when working with vapors, sprays, or airborne particulate matter. All discharge instructions reviewed with patient and/or family. Voiced understanding. Work/School Note: Work Release Form Date Seen in the Emergency Department: Sep 12, 2016 Return to Work: Sep 13, 2016 Other Restrictions Listed Below: Wear appropriate mask when working with sprays, vapors, particulate matter MIRIAM HUBER Sep 12, 2016 06:18 MORENA PALACIOS MD Sep 12, 2016 06:31
[2016-09-12 06:38] VITALS: BP 134/82
--- NOTE | 2016-09-12 08:42 | Diagnostic Imaging Report ---
INDICATION: Syncope. PA and lateral views of the chest were obtained. Comparison made with prior examination from 09/08/16. FINDINGS: The heart size, mediastinal configuration, and pulmonary vascularity are within normal limits. There is no pleural effusion, pneumothorax, or pneumonia. The osseous structures are unremarkable. IMPRESSION: No acute cardiopulmonary abnormality. Dictated by: Dictated on workstation # [id number]
== END 2016-09-12 06:40 | disposition home or self-care (01) ==
LOC: EDUNIT# 04:48 → ER 04:49
DX: R07.9 Chest pain, unspecified (principal); R06.00 Dyspnea, unspecified; I10 Essential (primary) hypertension; E78.00 Pure hypercholesterolemia, unspecified
CPT/HCPCS: 36415; 71020; 80053; 83735; 83874; 84484; 85025; 85610; 85730; 93005; 93041

== ENCOUNTER → 2016-09-24 | Outpatient (CLI) | payer OTHER ==
[~2016-09-24] MED LIST changes: +SIMV20TA3 PO; +SUMA50TA2
== END ==
DX: R07.89 Other chest pain (principal)

== ENCOUNTER 2017-09-04 10:18 | Emergency (ER) | payer OTHER ==
[~2017-09-04] VITALS: Ht 180.3 cm; Wt 117.0 kg
[~2017-09-04 10:18] MED LIST changes: +AZIT250T12 PO; -AZIT250T5 PO
--- OUTSIDE RECORDS SUMMARY | 2017-09-04 10:25 | XMS REPORT ---
Author Author MARYSOL ROJAS [facility] Address [address] [place] [address] Care Team Providers Care Um Nurse Name Role Phone MARYSOL ROJAS Unavailable PROBLEMS Type Condition ICD9-CM Code UKM27-GT Code Onset Dates Condition Status SNOMED Code Problem Acute non-recurrent maxillary sinusitis J01.00 Active 17998868 Problem Hyperlipidemia, unspecified hyperlipidemia type E78.5 Active 45378385 Problem Acute non intractable tension-type headache G44.209 Active 722213985 Problem Metabolic syndrome E88.81 Active 106275024 Problem Morbid obesity due to excess calories E66.01 Active 506986916 ALLERGIES No Known Allergies ENCOUNTERS Encounter Location Date Diagnosis [facility] IN [facility] [address] [address] 13 Jun, 2017 Bronchitis J40 [facility] [address] [address] 05 Jun, 2017 BMI 40.0-44.9, adult Z68.41 and Acute non-recurrent maxillary sinusitis J01.00 [facility] [address] [address] 10 Apr, 2017 [facility] IN [facility] [address] [address] 14 Mar, 2017 BMI 40.0-44.9, adult Z68.41 and Exposure to head lice Z20.7 [facility] [address] [address] 15 Feb, 2017 Current mild episode of major depressive disorder without prior episode F32.0 ; Metabolic syndrome E88.81 and BMI 40.0-44.9, adult Z68.41 [facility] [address] [address] Oct, [facility] [address] [address] Oct, [facility] [id number] [place] [address]60- 1230 Sep, [facility] [id number] [place] [address] 00361- 6858 Sep, [facility] [id number] [place] [address] 75827- 5828 Sep, Metabolic syndrome E88.81 ; Hyperlipidemia, unspecified hyperlipidemia type E78.5 and Atypical chest pain R07.89 [facility] [id number] [place] [address] 63582- 8602 Sep, [facility] [id number] [place] [address] 81656- 6459 Sep, Morbid obesity due to excess calories E66.01 and Acute non intractable tension-type headache G44.209 [facility] [address] [place] [address] August, Acute non intractable tension-type headache G44.209 [facility] [id number] [place] [address] [id number] 10 Feb, 2016 Dental examination Z01.20 [facility] [address] [address] 14 Jul, 2014 [facility] [id number] [place] [address] 79998- 3025 Jul, [facility] [id number] [place] [address] 10892- 8137 Dec, [facility] [id number] [place] [address] 73301- 2566 Dec, [facility] [id number] [place] [address] 94225- 6825 Dec, [facility] [address] [place] [address] 1547 Jun, [facility] [place] [facility] [address] [id number] [place] [address]- 4460 Jun, [facility] [place] [facility] [address] [id number] [place] [address]- 4797 Feb, [facility] [place] [facility] [address] [id number] [place] [address]- 8846 Feb, [facility] [place] [facility] [address] [id number] [place] [address]- 8319 August, [facility] [place] [facility] [address] [id number] [place] [address]- 4662 Mar, [facility] [place] [facility] [address] [id number] [place] [address]- 1976 Mar, [facility] [place] [facility] [address] [id number] [place] [address]- 0920 Feb, [facility] [place] [facility] [address] [id number] [place] [address]- 71[address] Feb, [facility] [place] [facility] [address] [id number] [place] [address]- 4926 Feb, [facility] [place] [facility] [address] [facility] [id number] [place] [address]- 2700 Feb, [facility] [place] [facility] [address] [id number] [place] [address]- 2422 18 Jan, 2011 [facility] [place] [facility] [address] [id number] [place] [address]- 6998 14 Jan, 2011 [facility] [place] [facility] [address] [id number] [place] [address]- 5696 14 Jan, 2011 [facility] [place] [facility] [address] [id number] [place] [address]- 7602 06 Feb, 2010 [facility] [place] [facility] [address] [id number] [place] [address] 16 Dec, 2009 [facility] [address] [facility] [id number] [place] [address] 1265 Nov, IMMUNIZATIONS No Known Immunizations SOCIAL HISTORY Never Assessed REASON FOR VISIT Cholesterol f/u-AHarrymanRN, States he got too hot at work two nights ago, vomited, dizzy, heart racing, shaky, went to ED for it yesterday and they stated it is not his heart and sent him home to rest and f/u with us, pt states he is feeling somewhat better but still easily winded PLAN OF CARE Activity Details Follow Up 3 Months Reason: VITAL SIGNS Height 69.25 in 2016-09-09 Weight 287.7 lbs 2016-09-09 Temperature 97.6 degrees Fahrenheit 2016-09-09 Heart Rate 90 bpm 2016-09-09 Respiratory Rate 18 2016-09-09 BMI 42.18 kg/m2 2016-09-09 Blood pressure systolic 128 mmHg 2016-09-09 Blood pressure diastolic 78 mmHg 2016-09-09 MEDICATIONS Medication Instructions Dosage Frequency Start Date End Date Duration Status Simvastatin 20 mg Orally Once a day 1 tablet in the evening 24h Sep, 90 days Active Imitrex 50 mg Orally once daily as needed 1 tablet as needed Sep, Active RESULTS Name Result Date Reference Range Exercise Treadmill Stress Test (TMST) 2016-09-24 PROCEDURES No Known procedures INSTRUCTIONS MEDICATIONS ADMINISTERED No Known Medications MEDICAL (GENERAL) HISTORY Type Description Date Medical History ulcerative colitis Surgical History bilateral knee scopes Surgical History pyloric stenosis Surgical History tonsilectomy Surgical History dental surgery Hospitalization History surgeries
--- OUTSIDE RECORDS SUMMARY | 2017-09-04 10:25 | XMS REPORT ---
Author Author MARYSOL ROJAS Organization [facility] Address [address] [place] [address] Care Team Providers Care System Support Technician Name Role Phone MARYSOL ROJAS Unavailable PROBLEMS Type Condition ICD9-CM Code QEH47-SD Code Onset Dates Condition Status SNOMED Code Problem Acute non-recurrent maxillary sinusitis J01.00 Active 72650993 Problem Hyperlipidemia, unspecified hyperlipidemia type E78.5 Active 67881341 Problem Acute non intractable tension-type headache G44.209 Active 677853027 Problem Metabolic syndrome E88.81 Active 563740495 Problem Morbid obesity due to excess calories E66.01 Active 712783729 ALLERGIES No Information ENCOUNTERS Encounter Location Date Diagnosis [facility] [id number] [place] [address]61- [address] 20 Jun, 2017 [facility]ALK IN [facility] [id number] [place] [address]2976 [address]27 13 Jun, 2017 Bronchitis J40 [facility] [id number] [place] [address] 67787- 7554 05 Jun, 2017 BMI 40.0-44.9, adult Z68.41 and Acute non-recurrent maxillary sinusitis J01.00 [facility] [id number] [place] [address] 32987- 9120 10 Apr, 2017 [facility]ALK IN [facility] [id number] [place] [address] 87506 -5695 14 Mar, 2017 BMI 40.0-44.9, adult Z68.41 and Exposure to head lice Z20.7 [facility] [id number] [place] [address] 67635- 5119 15 Feb, 2017 Current mild episode of major depressive disorder without prior episode F32.0 ; Metabolic syndrome E88.81 and BMI 40.0-44.9, adult Z68.41 [facility] [address] [place] [address] 29665- 7613 Oct, [facility] [id number] [place] [address] 60839- 6107 Oct, [facility] [id number] [place] [address] 50863- 6946 Sep, [facility] [address] [address]- [address] Sep, [facility] [id number] [place] [address] 05106- 4498 Sep, Metabolic syndrome E88.81 ; Hyperlipidemia, unspecified hyperlipidemia type E78.5 and Atypical chest pain R07.89 [facility] [id number] [place] [address] 83060- 8187 Sep, [facility] [id number] [place] [address]13- 0356 Sep, Morbid obesity due to excess calories E66.01 and Acute non intractable tension-type headache G44.209 [facility] [id number] [place] [address] 6[address]26 -[address]40 August, Acute non intractable tension-type headache G44.209 [facility] [address] [place] [address] [id number] 10 Feb, 2016 Dental examination Z01.20 [facility] [id number] [place] [address] 29131- 5578 Jul, [facility] [id number] [place] [address] 42945- 8694 Jul, [facility] [id number] [place] [address] 58891- 5035 Dec, [facility] [id number] [place] [address] 89737- 9227 Dec, [facility] [address] [place] [address]- 2686 05 Dec, 2013 [facility] [place] [facility] [address] [id number] [place] [address]- 6754 Jun, [facility] [place] [facility] [address] [id number] [place] [address]- 4224 Jun, [facility] [place] [facility] [address] [id number] [place] [address]- 3084 Feb, [facility] [place] [facility] [address] [id number] [place] [address]- 0022 Feb, [facility] [place] [facility] [address] [id number] [place] [address]- 9716 August, [facility] [place] [facility] [address] [id number] [place] [address]- 4736 Mar, [facility] [place] [facility] [address] [id number] [place] [address]- 6911 Mar, [facility] [place] [facility] [address] [id number] [place] [address]- 8196 Feb, [facility] [place] [facility] [address] [id number] [place] [address]- 6342 Feb, [facility] [place] [facility] [address] [facility] [id number] [place] [address]- 4573 Feb, [facility] [place] [facility] [address] [id number] [place] [address]- 7795 Feb, [facility] [place] [facility] [address] [id number] [place] [address]- 4651 18 Jan, 2011 [facility] [place] [facility] [address] [id number] [place] [address]- 1255 14 Jan, 2011 [facility] [place] [facility] [address] [id number] [place] [address]- 9653 14 Jan, 2011 [facility] [place] [facility] [address] [id number] [place] [address]- 9909 06 Feb, 2010 [facility] [address] [facility] [id number] [place] [address]- 0428 Dec, [facility] [address] [facility] [id number] [address]- 2663 Nov, IMMUNIZATIONS No Known Immunizations SOCIAL HISTORY Never Assessed REASON FOR VISIT no-show for DM ed PLAN OF CARE VITAL SIGNS MEDICATIONS Unknown Medications RESULTS No Results PROCEDURES No Known procedures INSTRUCTIONS MEDICATIONS ADMINISTERED No Known Medications MEDICAL (GENERAL) HISTORY Type Description Date Medical History ulcerative colitis Surgical History bilateral knee scopes Surgical History pyloric stenosis Surgical History tonsilectomy Surgical History dental surgery Hospitalization History surgeries
--- OUTSIDE RECORDS SUMMARY | 2017-09-04 10:25 | XMS REPORT ---
Author Author MARYSOL ROJAS Organization [facility] Address [address] [place] [address] Care Team Providers Care Uniform Room Attendant Name Role Phone MARYSOL ROJAS Unavailable PROBLEMS Type Condition ICD9-CM Code HHP37-ZD Code Onset Dates Condition Status SNOMED Code Problem Acute non-recurrent maxillary sinusitis J01.00 Active 91294646 Problem Hyperlipidemia, unspecified hyperlipidemia type E78.5 Active 48138023 Problem Acute non intractable tension-type headache G44.209 Active 721767881 Problem Metabolic syndrome E88.81 Active 095394390 Problem Morbid obesity due to excess calories E66.01 Active 188190560 ALLERGIES No Information ENCOUNTERS Encounter Location Date Diagnosis [facility] [id number] [place] [address] 65887- 0052 20 Jun, 2017 [facility]ALK IN [facility] [id number] [place] [address] 35292 -9188 13 Jun, 2017 Bronchitis J40 [facility] [id number] [place] [address] 92655- 8851 05 Jun, 2017 BMI 40.0-44.9, adult Z68.41 and Acute non-recurrent maxillary sinusitis J01.00 [facility] [id number] [place] [address] 54244- 1895 10 Apr, 2017 [facility] [id number] [place] [address] 78585 -8081 14 Mar, 2017 BMI 40.0-44.9, adult Z68.41 and Exposure to head lice Z20.7 [facility] [id number] [place] [address] 26290- 1018 15 Feb, 2017 Current mild episode of major depressive disorder without prior episode F32.0 ; Metabolic syndrome E88.81 and BMI 40.0-44.9, adult Z68.41 [facility] [address] [place] [address] 87923- 7330 Oct, [facility] [id number] [place] [address] 20452- 1779 Oct, [facility] [id number] [place] [address] 21030- 9639 Sep, [facility] [address] [address]- 0634 Sep, [facility] [id number] [place] [address] 35568- 5483 Sep, Metabolic syndrome E88.81 ; Hyperlipidemia, unspecified hyperlipidemia type E78.5 and Atypical chest pain R07.89 [facility] [id number] [place] [address] 24035- 7249 Sep, [facility] [id number] [place] [address] 01345- 9539 Sep, Morbid obesity due to excess calories E66.01 and Acute non intractable tension-type headache G44.209 [facility] [id number] [place] [address] 25991 -7845 August, Acute non intractable tension-type headache G44.209 [facility] [address] [place] [address] [id number] 10 Feb, 2016 Dental examination Z01.20 [facility] [id number] [place] [address] 80036- 6038 Jul, [facility] [id number] [place] [address] 81115- 3285 Jul, [facility] [id number] [place] [address] 35302- 8539 Dec, [facility] [id number] [place] [address] 21820- 7346 Dec, [facility] [address] [place] [address]- 5517 05 Dec, 2013 [facility] [place] [facility] [address] [id number] [place] [address]- 4752 Jun, [facility] [place] [facility] [address] [id number] [place] [address]- 9590 Jun, [facility] [place] [facility] [address] [id number] [place] [address]- 1938 Feb, [facility] [place] [facility] [address] [id number] [place] [address]- 2167 Feb, [facility] [place] [facility] [address] [id number] [place] [address]- 2031 August, [facility] [place] [facility] [address] [id number] [place] [address]- 2478 Mar, [facility] [place] [facility] [address] [id number] [place] [address]- 4596 Mar, [facility] [place] [facility] [address] [id number] [place] [address]- 1789 Feb, [facility] [place] [facility] [address] [id number] [place] [address]- 4545 Feb, [facility] [place] [facility] [address] [facility] [id number] [place] [address]- 8085 Feb, [facility] [place] [facility] [address] [id number] [place] [address]- 5330 Feb, [facility] [place] [facility] [address] [id number] [place] [address]- 0017 18 Jan, 2011 [facility] [place] [facility] [address] [id number] [place] [address]- 2998 14 Jan, 2011 [facility] [place] [facility] [address] [id number] [place] [address]- 8224 14 Jan, 2011 [facility] [place] [facility] [address] [id number] [place] [address]- 6910 06 Feb, 2010 [facility] [address] [facility] [id number] [place] [address]- 7356 Dec, [facility] [address] [facility] [id number] [address]- 6[address] Nov, IMMUNIZATIONS No Known Immunizations SOCIAL HISTORY Never Assessed REASON FOR VISIT DM ed rescheduled PLAN OF CARE VITAL SIGNS MEDICATIONS Unknown Medications RESULTS No Results PROCEDURES No Known procedures INSTRUCTIONS MEDICATIONS ADMINISTERED No Known Medications MEDICAL (GENERAL) HISTORY Type Description Date Medical History ulcerative colitis Surgical History bilateral knee scopes Surgical History pyloric stenosis Surgical History tonsilectomy Surgical History dental surgery Hospitalization History surgeries
--- OUTSIDE RECORDS SUMMARY | 2017-09-04 10:25 | XMS REPORT ---
Author Author MARYSOL ROJAS [facility] Address [address] [place] [address] Care Team Providers Care Director Of Quality Control Name Role Phone MARYSOL ROJAS Unavailable PROBLEMS Type Condition ICD9-CM Code XUO29-UM Code Onset Dates Condition Status SNOMED Code Problem Metabolic syndrome E88.81 Active 464972435 Problem Hyperlipidemia, unspecified hyperlipidemia type E78.5 Active 63870631 Problem Morbid obesity due to excess calories E66.01 Active 996782046 Problem Acute non intractable tension-type headache G44.209 Active 451915240 ALLERGIES No Information SOCIAL HISTORY Never Assessed PLAN OF CARE VITAL SIGNS MEDICATIONS Unknown Medications RESULTS No Results PROCEDURES No Known procedures IMMUNIZATIONS No Known Immunizations MEDICAL (GENERAL) HISTORY Type Description Date Medical History ulcerative colitis Surgical History bilateral knee scopes Surgical History pyloric stenosis Surgical History tonsilectomy Surgical History dental surgery Hospitalization History surgeries
--- OUTSIDE RECORDS SUMMARY | 2017-09-04 10:26 | XMS REPORT ---
Author Author MARYSOL ROJAS Organization [facility] [place] Address [address] [place] [address] Care Team Providers Care Weight Calculator Name Role Phone MARYSOL ROJAS Unavailable PROBLEMS Type Condition ICD9-CM Code CMT42-OQ Code Onset Dates Condition Status SNOMED Code Problem Acute non-recurrent maxillary sinusitis J01.00 Active 72127598 Problem Hyperlipidemia, unspecified hyperlipidemia type E78.5 Active 53019575 Problem Acute non intractable tension-type headache G44.209 Active 349566991 Problem Metabolic syndrome E88.81 Active 664124349 Problem Morbid obesity due to excess calories E66.01 Active 742317864 ALLERGIES No Information ENCOUNTERS Encounter Location Date Diagnosis [facility] [place] [id number] [place] [address] 96053- 3266 20 Jun, 2017 [facility] WALK IN [facility] [id number] [place] [address] 20880 -6435 13 Jun, 2017 Bronchitis J40 [facility] [place] [id number] [place] [address] 88295- 2324 05 Jun, 2017 BMI 40.0-44.9, adult Z68.41 and Acute non-recurrent maxillary sinusitis J01.00 [facility] [place] [id number] [place] [address] 56452- 6383 10 Apr, 2017 [facility] WALK IN [facility] [id number] [place] [address] 91856 -2846 14 Mar, 2017 BMI 40.0-44.9, adult Z68.41 and Exposure to head lice Z20.7 [facility] [place] [id number] [place] [address] 85281- 7139 15 Feb, 2017 Current mild episode of major depressive disorder without prior episode F32.0 ; Metabolic syndrome E88.81 and BMI 40.0-44.9, adult Z68.41 [facility] [place] [id number] [place] [address] 85078- 1769 Oct, [facility] [place] [id number] [place] [address] 62520- 5689 Oct, [facility] [place] [id number] [place] [address] 22555- 4862 Sep, [facility] [place] [address] [address]- 5377 Sep, [facility] [place] [id number] [place] [address] 77113- 8180 Sep, Metabolic syndrome E88.81 ; Hyperlipidemia, unspecified hyperlipidemia type E78.5 and Atypical chest pain R07.89 [facility] [place] [id number] [place] [address] 54553- 5881 Sep, [facility] [place] [id number] [place] [address] 48714- 6018 Sep, Morbid obesity due to excess calories E66.01 and Acute non intractable tension-type headache G44.209 [facility] [id number] [place] [address] 75490 -7027 August, Acute non intractable tension-type headache G44.209 [facility] [address] [place] [address] [id number] 10 Feb, 2016 Dental examination Z01.20 [facility] [place] [id number] [place] [address] 88030- 0094 Jul, [facility] [place] [id number] [place] [address] 99008- 6434 Jul, [facility] [place] [id number] [place] [address] 07065- 4468 Dec, [facility] [place] [id number] [place] [address] 99456- 8819 Dec, [facility] [place] [address] [place] [address] 0[address] 05 Dec, 2013 [facility] [place] [facility] [address] [id number] [place] [address] 1984 Jun, [facility] [place] [facility] [address] [id number] [place] [address] 0434 Jun, [facility] [place] [facility] [address] [id number] [place] [address] 1999 Feb, [facility] [place] [facility] [address] [id number] [place] [address]- 5388 Feb, [facility] [place] [facility] [address] [id number] [place] [address]- 4018 August, [facility] [place] [facility] [address] [id number] [place] [address]- 4562 Mar, [facility] [place] [facility] [address] [id number] [place] [address]- 9012 Mar, [facility] [place] [facility] [address] [id number] [place] [address]- 4844 Feb, [facility] [place] [facility] [address] [id number] [place] [address]- 6918 Feb, [facility] [place] [facility] [address] [facility] [id number] [place] [address]- 3391 Feb, [facility] [place] [facility] [address] [id number] [place] [address]- 2684 Feb, [facility] [place] [facility] [address] [id number] [place] [address]- 0381 18 Jan, 2011 [facility] [place] [facility] [address] [id number] [place] [address]- 1053 14 Jan, 2011 [facility] [place] [facility] [address] [id number] [place] [address]- 6404 14 Jan, 2011 [facility] [place] [facility] [address] [id number] [place] [address]- 1009 06 Feb, 2010 [facility] [place] [address] [facility] [id number] [place] [address]- 8951 Dec, [facility] [place] [address] [facility] [id number] [address] Nov, IMMUNIZATIONS No Known Immunizations SOCIAL HISTORY Never Assessed REASON FOR VISIT DM ed tentatively scheduled PLAN OF CARE VITAL SIGNS MEDICATIONS Unknown Medications RESULTS No Results PROCEDURES No Known procedures INSTRUCTIONS MEDICATIONS ADMINISTERED No Known Medications MEDICAL (GENERAL) HISTORY Type Description Date Medical History ulcerative colitis Surgical History bilateral knee scopes Surgical History pyloric stenosis Surgical History tonsilectomy Surgical History dental surgery Hospitalization History surgeries
--- OUTSIDE RECORDS SUMMARY | 2017-09-04 10:26 | XMS REPORT ---
Author Author MARYSOL ROJAS Organization [facility] Address [address] [place] [address] Care Team Providers Care Wire Insulator Name Role Phone MARYSOL ROJAS Unavailable PROBLEMS Type Condition ICD9-CM Code KSN28-ZP Code Onset Dates Condition Status SNOMED Code Problem Acute non-recurrent maxillary sinusitis J01.00 Active 23767821 Problem Hyperlipidemia, unspecified hyperlipidemia type E78.5 Active 48939871 Problem Acute non intractable tension-type headache G44.209 Active 385850562 Problem Metabolic syndrome E88.81 Active 121713311 Problem Morbid obesity due to excess calories E66.01 Active 258134837 ALLERGIES No Known Allergies ENCOUNTERS Encounter Location Date Diagnosis [facility] [id number] [place] [address] 06727- 3438 20 Jun, [address] [facility] WALK IN [facility] [id number] [place] [address] 97784 -4132 13 Jun, 2017 Bronchitis J40 [facility] [address] 55621- 6531 05 Jun, 2017 BMI 40.0-44.9, adult Z68.41 and Acute non-recurrent maxillary sinusitis J01.00 [facility] [id number] [place] [address] 80295- 6412 10 Apr, [address] [facility] WALK IN [facility] [id number] [place] [address] 87337 -2357 14 Mar, 2017 BMI 40.0-44.9, adult Z68.41 and Exposure to head lice Z20.7 [facility] [id number] [place] [address] 63261- 0311 15 Feb, 2017 Current mild episode of major depressive disorder without prior episode F32.0 ; Metabolic syndrome E88.81 and BMI 40.0-44.9, adult Z68.41 [facility] [address] [address]- 9679 Oct, [facility] [id number] [place] [address] 87010- 8907 Oct, [facility] [id number] [place] [address] 56841- 4929 Sep, [facility] [address] 85673- 0461 Sep, [facility] [id number] [place] [address] 77990- 7466 Sep, Metabolic syndrome E88.81 ; Hyperlipidemia, unspecified hyperlipidemia type E78.5 and Atypical chest pain R07.89 [facility] [id number] [place] [address] 01995- 2120 Sep, [facility] [id number] [place] [address] 49767- 1716 Sep, Morbid obesity due to excess calories E66.01 and Acute non intractable tension-type headache G44.[address] [facility] [id number] [place] [address] 23351 -1661 August, Acute non intractable tension-type headache G44.209 [facility] [address] [id number] Feb, Dental examination Z01.20 [facility] [id number] [place] [address] 11347- 4831 Jul, [facility] [id number] [place] [address] 51456- 8063 Jul, [facility] [id number] [place] [address] 13898- 0405 Dec, [facility] [id number] [place] [address] 68322- 0181 Dec, [facility] [address] [place] [address]- 5560 05 Dec, 2013 [facility] [place] [facility] [address] [id number] [place] [address]- 8511 Jun, [facility] [place] [facility] [address] [id number] [place] [address]- 2708 Jun, [facility] [place] [facility] [address] [id number] [place] [address]- 4083 Feb, [facility] [place] [facility] [address] [id number] [place] [address]- 9811 Feb, [facility] [place] [facility] [address] [id number] [place] [address]- 8375 August, [facility] [place] [facility] [address] [id number] [place] [address]- 2140 Mar, [facility] [place] [facility] [address] [id number] [place] [address]- 3541 Mar, [facility] [place] [facility] [address] [id number] [place] [address]- 7797 Feb, [facility] [place] [facility] [address] [id number] [place] [address]- 7430 Feb, [facility] [place] [facility] [address] [facility] [id number] [place] [address]- 9411 Feb, [facility] [place] [facility] [address] [id number] [place] [address]- 5760 Feb, [facility] [place] [facility] [address] [id number] [place] [address]- 5547 18 Jan, 2011 [facility] [place] [facility] [address] [id number] [place] [address]- 3633 14 Jan, 2011 [facility] [place] [facility] [address] [id number] [place] [address]- 5301 14 Jan, 2011 [facility] [place] [facility] [address] [id number] [place] [address] Feb, [facility] [address] [facility] [id number] [place] [address]- 9596 Dec, [facility] [address] [facility] [id number], [place] [address]- 6683 Nov, IMMUNIZATIONS No Known Immunizations SOCIAL HISTORY Never Assessed REASON FOR VISIT Depression / anxiety---[place],CCMA PLAN OF CARE Activity Details Follow Up we will call Reason:depression/cholesterol VITAL SIGNS Height 69.25 in 2017-02-17 Weight 278.4 lbs 2017-02-17 Temperature 97.8 degrees Fahrenheit 2017-02-17 Heart Rate 86 bpm 2017-02-17 Respiratory Rate 18 2017-02-17 BMI 40.81 kg/m2 2017-02-17 Blood pressure systolic 127 mmHg 2017-02-17 Blood pressure diastolic 82 mmHg 2017-02-17 MEDICATIONS Medication Instructions Dosage Frequency Start Date End Date Duration Status Amoxicillin 500 MG Orally Three times a day 1 capsule 8h 7 days Not- Taking Citalopram Hydrobromide 20 mg Orally Once a day 1 tablet 24h Feb, 30 day(s) Active Imitrex 50 mg Orally once daily as needed 1 tablet as needed Sep, Not-Taking Simvastatin 20 mg Orally Once a day 1 tablet in the evening 24h Sep, 90 days Active RESULTS No Results PROCEDURES No Known procedures INSTRUCTIONS MEDICATIONS ADMINISTERED No Known Medications MEDICAL (GENERAL) HISTORY Type Description Date Medical History ulcerative colitis Surgical History bilateral knee scopes Surgical History pyloric stenosis Surgical History tonsilectomy Surgical History dental surgery Hospitalization History surgeries
--- OUTSIDE RECORDS SUMMARY | 2017-09-04 10:26 | XMS REPORT ---
Author Author MARYSOL ROJAS [facility] Address [address] [place] [address] Care Team Providers Care Retail Banking Manager Name Role Phone MARYSOL ROJAS Unavailable PROBLEMS Type Condition ICD9-CM Code BSO31-LM Code Onset Dates Condition Status SNOMED Code Problem Metabolic syndrome E88.81 Active 227344883 Problem Hyperlipidemia, unspecified hyperlipidemia type E78.5 Active 14110161 Problem Morbid obesity due to excess calories E66.01 Active 284709469 Problem Acute non intractable tension-type headache G44.209 Active 115233636 ALLERGIES No Known Allergies SOCIAL HISTORY Never Assessed PLAN OF CARE Activity Details Follow Up pending lab results Reason: VITAL SIGNS Height 69.25 in 2016-09-03 Weight 282.1 lbs 2016-09-03 Temperature 98.2 degrees Fahrenheit 2016-09-03 Heart Rate 90 bpm 2016-09-03 Respiratory Rate 20 2016-09-03 Oximetry 99 % 2016-09-03 BMI 41.35 kg/m2 2016-09-03 Blood pressure systolic 124 mmHg 2016-09-03 Blood pressure diastolic 82 mmHg 2016-09-03 MEDICATIONS Medication Instructions Dosage Frequency Start Date End Date Duration Status Imitrex 50 mg Orally once daily as needed 1 tablet as needed Sep, Active RESULTS Name Result Date Reference Range TSH 2016-09-03 TSH 4.420 0.450-4.500 CBC 2016-09-03 WBC 8.8 3.4-10.8 RBC 5.03 4.14-5.80 Hemoglobin 14.6 12.6-17.7 Hematocrit 43.7 37.5-51.0 MCV 87 79-97 MCH 29.0 26.6-33.0 MCHC 33.4 31.5-35.7 RDW 14.8 12.3-15.4 Platelets 278 150-379 Neutrophils 62 Lymphs 28 Monocytes 9 Eos 1 Basos 0 Immature Cells Neutrophils (Absolute) 5.5 1.4-7.0 Lymphs (Absolute) 2.5 0.7-3.1 Monocytes(Absolute) 0.8 0.1-0.9 Eos (Absolute) 0.1 0.0-0.4 Baso (Absolute) 0.0 0.0-0.2 Immature Granulocytes 0 Immature Grans (Abs) 0.0 0.0-0.1 NRBC Hematology Comments: LIPID PANEL 2016-09-03 Cholesterol, Total 224 100-199 Triglycerides 261 0-149 HDL Cholesterol 30 >39 VLDL Cholesterol Jones 52 5-40 LDL Cholesterol Calc 142 0-99 Comment: CMP 2016-09-03 Glucose, Serum 81 65-99 BUN 12 6-20 Creatinine, Serum 0.85 0.76-1.27 eGFR If NonAfricn Am 125 >59 eGFR If Africn Am 144 >59 BUN/Creatinine Ratio 14 9-20 Sodium, Serum 142 134-144 Potassium, Serum 4.1 3.5-5.2 Chloride, Serum 102 96-106 Carbon Dioxide, Total 25 18-29 Calcium, Serum 9.7 8.7-10.2 Protein, Total, Serum 6.8 6.0-8.5 Albumin, Serum 4.6 3.5-5.5 Globulin, Total 2.2 1.5-4.5 A/G Ratio 2.1 1.2-2.2 Bilirubin, Total 0.5 0.0-1.2 Alkaline Phosphatase, S 89 39-117 AST (SGOT) 19 0-40 ALT (SGPT) 31 0-44 PROCEDURES Procedure Date Ordered Result Body Site MEASURE BLOOD OXYGEN LEVEL September 03, 2016 COMPLETE CBC W/AUTO DIFF WBC September 03, 2016 VENIPUNCT, ROUTINE* September 03, 2016 ASSAY THYROID STIM HORMONE September 03, 2016 COMPREHEN METABOLIC PANEL September 03, 2016 LIPID PANEL September 03, 2016 IMMUNIZATIONS No Known Immunizations MEDICAL (GENERAL) HISTORY Type Description Date Medical History ulcerative colitis Surgical History bilateral knee scopes Surgical History pyloric stenosis Surgical History tonsilectomy Surgical History dental surgery Hospitalization History surgeries
--- OUTSIDE RECORDS SUMMARY | 2017-09-04 10:27 | XMS REPORT | Continuity of Care Document ---
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 Blood monocytes automated count (number/volume) 1.0 10*3 0.0-1.0 Automated eosinophil count 0.1 10*3/uL 0.0-0.3 Automated blood basophil count (count/volume) 0.0 10*3/uL 0.0-0.1 PT panel in platelet poor plasma by coagulation assay - 09/12/16 05:08 Prothrombin time (PT) in platelet poor plasma by coagulation assay 12.8 s 12.2-14.7 INR in platelet poor plasma or blood by coagulation assay 1.0 0.8-1.4 Activated partial thromboplastin time (aPTT) in platelet poor plasma bycoagulation assay - 09/12/16 05:08 Activated partial thromboplastin time (aPTT) in platelet poor plasma bycoagulation assay 31 s 24-35 Comprehensive metabolic panel - 09/12/16 05:08 Serum or plasma sodium measurement (moles/volume) 139 mmol/L 135-145 Serum or plasma potassium measurement (moles/volume) 3.4 mmol/L 3.6-5.0 Serum or plasma chloride measurement (moles/volume) 106 mmol/L 98-107 Carbon dioxide 20 mmol/L 21-32 Serum or plasma anion gap determination (moles/volume) 13 mmol/L 5-14 Serum or plasma urea nitrogen measurement (mass/volume) 19 mg/dL 7-18 Serum or plasma creatinine measurement (mass/volume) 0.92 mg/dL 0.60-1.30 Serum or plasma urea nitrogen/creatinine mass ratio 21 NRG Serum or plasma creatinine measurement with calculation of estimated glomerular filtration rate > NRG Serum or plasma glucose measurement (mass/volume) 94 mg/dL 70-105 Serum or plasma calcium measurement (mass/volume) 9.9 mg/dL 8.5-10.1 Serum or plasma total bilirubin measurement (mass/volume) 0.6 mg/dL 0.1-1.0 Serum or plasma alkaline phosphatase measurement (enzymatic activity/volume) 94 U/L 40-136 Serum or plasma aspartate aminotransferase measurement (enzymatic activity/ volume) 24 U/L 5-34 Serum or plasma alanine aminotransferase measurement (enzymatic activity/volume ) 37 U/L 0-55 Serum or plasma protein measurement (mass/volume) 7.3 g/dL 6.4-8.2 Serum or plasma albumin measurement (mass/volume) 4.4 g/dL 3.2-4.5 Magnesium - 09/12/16 05:08 Magnesium 2.0 mg/dL 1.8-2.4 Serum or plasma troponin i.cardiac measurement (mass/volume) - 09/12/16 05:08 Serum or plasma troponin i.cardiac measurement (mass/volume) < ng/ mL <0.30 Myoglobin, serum - 09/12/16 05:08 Myoglobin, serum 33.5 ng/mL 10.0-92.0 Encounters ACCT No. Visit Date/Time Discharge Status Pt. Type Provider Facility Loc./Unit Complaint [id number] 12/12/2013 15:36:00 12/12/2013 23:59:59 CLS Outpatient ASHLEIGH RUTLEDGE PHYLICIA Dashawn [id number] 02/08/2013 14:06:00 02/08/2013 23:59:59 CLS Outpatient NOMAN MILLER APRN [id number] 03/14/2012 15:57:00 03/14/2012 23:59:59 CLS Outpatient [id number] 02/10/2012 15:03:00 02/10/2012 23:59:59 CLS Outpatient NOMAN MILLER APRN [id number] 08/05/2012 10:53:00 Document Registration [id number] 01/05/2015 07:35:06 ACT Document Registration [id number] 09/24/2016 10:08:00 09/24/2016 23:59:59 CLS Outpatient SAGRARIO HOPPER, MARYSOL Mclaughlin [facility] CARD ATYPICAL CHEST PAIN R07.89 [id number] 09/12/2016 04:49:00 09/12/2016 06:40:00 DIS Emergency MORENA PALACIOS MD [facility] ER CHEST PRESSURE [id number] 09/08/2016 14:41:00 09/08/2016 16:59:00 DIS Emergency MARGE TALLEY DO [facility] ER CHEST PAIN/TIGHTNESS,SOA [id number] 08/12/2016 01:59:00 08/12/2016 05:00:00 DIS Emergency MORENA PALACIOS MD [facility] ER SLIPPED AT WORK HIT PRIVATE PARTS ON MACHINERY [id number] 06/30/2016 05:24:00 06/30/2016 07:22:00 DIS Emergency LISA FERNANDEZ MD [facility] ER LEFT EYE PAIN,VISION BLURRY,TENDER TO TOUCH [id number] 03/19/2016 18:07:00 03/19/2016 20:21:00 DIS Emergency MORENA PALACIOS MD [facility] ER FEVER,SOA [id number] 08/12/2015 22:19:00 08/12/2015 23:07:00 DIS Emergency LISA FERNANDEZ MD [facility] ER [id number] 06/18/2015 07:49:00 06/18/2015 11:40:00 DIS Emergency MORENA PALACIOS MD [facility] ER BODYACHES/FLU SYMPTOMS [id number] 06/07/2015 07:37:00 06/07/2015 09:28:00 DIS Emergency LISA FERNANDEZ MD [facility] ER LOWER ABD PAIN [id number] 01/04/2015 17:26:00 01/04/2015 19:53:00 DIS Emergency GAURAV DICKINSON [facility] ER L FOOT PAIN [id number] 08/28/2014 22:15:00 08/29/2014 00:09:00 DIS Emergency ANGEL COE DO [facility] ER DIZZINESS,BODY ACHES [id number] 03/15/2014 19:38:00 03/15/2014 21:45:00 DIS Emergency GAURAV DICKINSON [facility] ER FEVER;RASH;SOA [id number] 12/08/2013 14:24:00 12/08/2013 16:45:00 DIS Emergency PHILIP HOPPER, MORENA Woodruff [facility] ER ABD PAIN/BLOOD IN STOOL [id number] 12/07/2013 15:38:00 12/07/2013 17:57:00 DIS Emergency LIVIER PATEL MD [facility] ER RECTAL BLEEDING [id number] 10/02/2013 09:33:00 10/02/2013 12:40:00 DIS Outpatient [facility] [id number] 09/28/2013 07:23:00 09/28/2013 23:59:59 CLS Outpatient ZULY DAILEY MD [facility] PREOP ABDOMINAL PAIN [id number] 09/27/2013 12:49:00 09/27/2013 15:40:00 DIS Emergency PHILIP HOPPER, MORENA Woodruff [facility] ER ABD PAIN [id number] 09/20/2013 22:25:00 09/22/2013 14:40:00 DIS Inpatient ZULY DAILEY MD [facility] SURGICAL INTRACTABLE RLQ PAIN ,DIARRHEA [id number] 08/07/2013 09:08:00 08/07/2013 09:53:00 DIS Emergency LISA FERNANDEZ MD [facility] ER DENTAL PAIN [id number] 11/19/2016 15:23:00 Document Registration [id number] 11/19/2016 15:23:00 Document Registration [id number] 11/19/2016 15:23:00 Document Registration [id number] 11/19/2016 15:23:00 Document Registration [id number] 11/19/2016 15:23:00 Document Registration [id number] 11/19/2016 15:23:00 Document Registration [id number] 05/19/2012 09:28:00 Document Registration [id number] 05/27/2011 10:23:00 Document Registration [id number] 08/13/2010 16:13:00 Document Registration [id number] 12/19/2009 10:02:00 Document Registration [id number] 04/30/2009 17:44:00 Document Registration [id number] 12/14/2008 15:06:00 Document Registration [id number] 05/28/2005 15:18:00 Document Registration [id number] 06/15/2017 08:40:00 06/15/2017 23:59:59 [facility] Outpatient SAGRARIO HOPPER, MARYSOL [facility] [id number] 09/04/2016 08:06:00 Document Registration
[2017-09-04 10:33] VITALS: BP 151/79
[2017-09-04] MEDS ORDERED: LACTATED RINGERS 1,000 ML IV ONE (10:57)
[2017-09-04] MEDS ORDERED: ONDANSETRON 4 MG/2 ML (SDV) Z0FRAN IVP ONE (11:00)
[2017-09-04] MEDS ORDERED: fentaNYL INJECTION 100 MCG/2 ML AMP IVP ONE (11:00)
--- NOTE | 2017-09-04 11:02 | ED Abdominal Pain ---
General Chief Complaint: Abdominal/GI Problems Stated Complaint: VOMITTING, SHARP PAIN RIGHT SIDE Source of Information: Patient, Other Exam Limitations: No Limitations History of Present Illness Date Seen by Provider: Sep 04, 2017 Time Seen by Provider: 10:52 Initial Comments Patient presents to the ER by private conveyance with his significant other and a chief complaint that for one day now he's had very painful right lower quadrant abdominal tenderness worse with movement or scratching up. Better with lying down. He describes the pain as severe, sharp, constant. It is progressively getting worse. He says he has a history of ulcerative colitis and is not on any medications controller for the last couple years because his flares are usually just a little diarrhea and not very painful. He also cannot afford the medicine even with insurance. His last colonoscopy was in 2013 when they found two ulcers in his sigmoid colon. Patient's been having nausea with vomiting 6 times a day. He is not allergy any medicine down. He did take some ibuprofen and was able to keep it down for about an hour and it marginally helped. Allergies and Home Medications Allergies Coded Allergies: No Known Drug Allergies (Unverified , 06/30/16) Patient Home Medication List Home Medication List Reviewed: Yes Review of Systems Constitutional: No chills, No diaphoresis, No fever EENTM: No Blurred Vision, No Double Vision Respiratory: Denies Cough, Denies Shortness of Air Cardiovascular: Denies Chest Pain, Denies Lightheadedness Gastrointestinal: Denies Constipated; Diarrhea, Nausea, Vomiting Genitourinary: Denies Discharge, Denies Drainage Musculoskeletal: No back pain, No joint pain, No joint swelling Skin: No pruritus, No rash Psychiatric/Neurological: Denies Headache, Denies Numbness Past Lfzgyit-Sullcj-Tpgxcu Hx Patient Social History Recreational Drug Use: No 2nd Hand Smoke Exposure: No Recent Foreign Travel: No Contact w/Someone Who Travel: No Recent Hopitalizations: No Immunizations Up To Date Tetanus Booster (TDap): Unknown Seasonal Allergies Seasonal Allergies: No Past Medical History Surgeries: Yes (PYLORIC STENOSIS, BILAT KNEE SCOPE, COLONSCOPY, DENTAL) Abdominal, Orthopedic, Tonsillectomy Respiratory: No Cardiac: Yes High Cholesterol, Hypertension Neurological: No Headaches /Migraines Reproductive Disorders: No Genitourinary: No Gastrointestinal: Yes (Pyloric stenosis, Ulcerative colitis) Colitis, Gastroesophageal Reflux Musculoskeletal: No Endocrine: No HEENT: No Cancer: No Psychosocial: No Integumentary: No Blood Disorders: No Family Medical History Hypertension, Other Conditions/Hx Physical Exam Vital Signs Vital Signs - First Documented 09/04/17 10:33 Temp 98.3 Pulse 85 Resp 18 B/P (MAP) 151/79 (103) Pulse Ox 98 O2 Delivery Room Air Capillary Refill : General Appearance: WD/WN, mild distress HEENT: PERRL/EOMI, pharynx normal Neck: non-tender, supple, normal inspection Respiratory: chest non-tender, lungs clear, normal breath sounds, no respiratory distress, no accessory muscle use Cardiovascular: normal peripheral pulses, regular rate, rhythm, no edema Gastrointestinal: normal bowel sounds, soft, guarding (rlq); No rebound; tenderness (negative for Rovsing but positive for psoas right lower quadrant), other (tenderness to percussion feels.) Extremities: normal range of motion, normal inspection, no calf tenderness, normal capillary refill Neurologic/Psychiatric: alert, oriented x 3 Skin: normal color, warm/dry Progress/Results/Core Measures Results/Orders Lab Results Laboratory Tests Test 09/04/17 10:56 Range/Units White Blood Count 11.4 H 4.3-11.0 10^3/uL Red Blood Count 5.23 4.35-5.85 10^6/uL Hemoglobin 16.2 13.3-17.7 G/DL Hematocrit 44 40-54 % Mean Corpuscular Volume 85 80-99 FL Mean Corpuscular Hemoglobin 31 25-34 PG Mean Corpuscular Hemoglobin Concent 37 H 32-36 G/DL Red Cell Distribution Width 13.6 10.0-14.5 % Platelet Count 223 130-400 10^3/uL Mean Platelet Volume 11.0 H 7.4-10.4 FL Neutrophils (%) (Auto) 74 42-75 % Lymphocytes (%) (Auto) 17 12-44 % Monocytes (%) (Auto) 8 0-12 % Eosinophils (%) (Auto) 1 0-10 % Basophils (%) (Auto) 0 0-10 % Neutrophils # (Auto) 8.5 H 1.8-7.8 X 10^3 Lymphocytes # (Auto) 1.9 1.0-4.0 X 10^3 Monocytes # (Auto) 1.0 0.0-1.0 X 10^3 Eosinophils # (Auto) 0.1 0.0-0.3 10^3/uL Basophils # (Auto) 0.0 0.0-0.1 10^3/uL Sodium Level 142 135-145 MMOL/L Potassium Level 4.4 3.6-5.0 MMOL/L Chloride Level 111 H 98-107 MMOL/L Carbon Dioxide Level 20 L 21-32 MMOL/L Anion Gap 11 5-14 MMOL/L Blood Urea Nitrogen 11 7-18 MG/DL Creatinine 0.83 0.60-1.30 MG/DL Estimat Glomerular Filtration Rate > 60 BUN/Creatinine Ratio 13 Glucose Level 97 70-105 MG/DL Calcium Level 9.9 8.5-10.1 MG/DL Magnesium Level 2.3 1.8-2.4 MG/DL Total Bilirubin 0.6 0.1-1.0 MG/DL Aspartate Amino Transf (AST/SGOT) 24 5-34 U/L Alanine Aminotransferase (ALT/SGPT) 36 0-55 U/L Alkaline Phosphatase 82 40-136 U/L Total Protein 7.7 6.4-8.2 GM/DL Albumin 4.6 H 3.2-4.5 GM/DL Lipase 21 8-78 U/L My Orders Orders - MIRIAM HUBER Ua Culture If Indicated (09/04/17 10:48) Cbc With Automated Diff (09/04/17 10:57) Comprehensive Metabolic Panel (09/04/17 10:57) Drug Screen Stat (Urine) (09/04/17 10:57) Lipase (09/04/17 10:57) Magnesium (09/04/17 10:57) Ct Abd/Pelv W (Appendicitis) (09/04/17 10:57) Saline Lock/Iv-Start (09/04/17 10:57) Saline Lock/Iv-Start (09/04/17 10:57) Lactated Ringers (Lr 1000 Ml Iv Solution (09/04/17 10:57) Fentanyl Injection (Sublimaze Injection (09/04/17 11:00) Ondansetron Injection (Zofran Injectio (09/04/17 11:00) Iohexol Injection (Omnipaque 350 Mg/Ml 1 (09/04/17 11:15) Ns (Ivpb) (Sodium Chloride 0.9% Ivpb Bag (09/04/17 11:15) Mesalamine Capsule (Pentasa) (Pentasa Ca (09/04/17 12:30) Methylprednisolone Sod Succ (Solu-Medrol (09/04/17 12:30) Medications Given in ED Current Medications Medications Dose Ordered Sig/Froylan Route Start Time Stop Time Status Last Admin Dose Admin Fentanyl Citrate 50 mcg ONCE ONCE IVP 09/04/17 11:00 09/04/17 11:01 DC 09/04/17 11:08 50 MCG Iohexol 100 ml ONCE ONCE IV 09/04/17 11:15 09/04/17 11:16 DC 09/04/17 11:30 100 ML Lactated Ringer's 1,000 ml @ 0 mls/hr Q0M ONCE IV 09/04/17 10:57 09/04/17 11:01 DC 09/04/17 11:08 1,000 MLS/HR Ondansetron HCl 4 mg ONCE ONCE IVP 09/04/17 11:00 09/04/17 11:01 DC 09/04/17 11:07 4 MG Sodium Chloride 100 ml ONCE ONCE IV 09/04/17 11:15 09/04/17 11:16 DC 09/04/17 11:30 100 ML Vital Signs/I&O 09/04/17 09/04/17 10:33 10:46 Temp 98.3 98.6 Pulse 85 85 Resp 18 18 B/P (MAP) 151/79 (103) 151/79 (103) Pulse Ox 98 98 O2 Delivery Room Air Room Air Blood Pressure Mean: 103 Progress Progress Note : Time: 12:28 Progress Note Normal looking abdomen with his pain and history of ulcerative colitis means is probably an ulcerative colitis flare. We'll start him on some steroids and mesalamine. He is not septic so antibiotics have no role right now. If he feels like his pain is better control his nausea is under control and we can get him set up for outpatient therapy and follow-up in the clinic. Patient's nausea is gone and his pain is much improved although starting to come back since the femorals wearing off. He would prefer not to have an opiate for his pain management says tramadol as worked better for him in the past. He is in agreement with going home and trying outpatient therapy and he will follow up next week in the clinic. Diagnostic Imaging Diagonstic Imaging: CT (c/c) Plain Films/CT/US/NM/MRI: abdomen, pelvis Comments VIA [facility]. [place], [place] NAME: CONCEPCION WHYTE [facility] REC#: [id number] PT STATUS: REG ER : 1995 PHYSICIAN: MIRIAM HUBER MD ADMIT DATE: 09/04/17/ER Draft Date of Exam:09/04/17 CT ABD/PELV W (APPENDICITIS) PROCEDURE: CT abdomen and pelvis with contrast, rule out appendicitis. TECHNIQUE: Multiple contiguous axial images were obtained through the abdomen and pelvis after the administration of intravenous contrast. INDICATION: Right lower quadrant pain, nausea, and vomiting. COMPARISON: June 07, 2015. FINDINGS: The visualized lung bases are clear. The liver and spleen are unremarkable. The adrenal glands are unremarkable. The pancreas is unremarkable. The gallbladder is unremarkable. Main portal vein is patent. The bilateral kidneys and ureters are unremarkable. No aneurysmal dilatation of the abdominal aorta. The urinary bladder is unremarkable. The appendix is unremarkable. No bowel obstruction or pneumatosis. No significant adenopathy, free air, or free fluid within the abdomen or pelvis. No acute osseous abnormality. IMPRESSION: No acute abnormality identified. In particular, the appendix is unremarkable. Dictated on workstation # [id number] Dict: 09/04/17 1144 Trans: 09/04/17 1156 [id number] Interpreted by: CONCEPCION CRAWLEY MD Electronically signed by: Reviewed: Reviewed by Me Departure Impression Primary Impression: Ulcerative colitis, acute Qualified Codes: K51.90 - Ulcerative colitis, unspecified, without complications Disposition: 01 HOME, SELF-CARE Condition: Improved Departure-Patient Inst. Decision time for Depature: 12:37 Referrals: MARYSOL ROJAS MD (PCP/Family) Primary Care Physician Patient Instructions: Ulcerative Colitis (DC) Add. Discharge Instructions: supervisor firearms the sulfasalazine and use 1000 mg(Two Tabs) 4 times a day until you reach remission of your pain, diarrhea, nausea symptoms and continue it for a 3 more days. supervisor firearms the prednisone and take 40 mg, 2 tablets daily for the next 7 days or until symptoms stop. You may also use Tylenol 1000 mg every 8 hours as needed for pain as well as heat. If you have continued breakthrough pain you can use 1 tramadol tablet every 6 hours as needed. If you have nausea or vomiting you can take one tablet of Zofran every [address] it on your tongue and allow it to dissolve. If your pain or symptoms become more severe or you cannot tolerate them then you may return to the ER for further evaluation and possible hospitalization. Wednesday morning call [facility] and get an appointment to follow up this week or next for continued management of your ulcerative colitis flare. All discharge instructions reviewed with patient and/or family. Voiced understanding. Scripts Tramadol HCl (Tramadol HCl) 50 Mg Tablet 50 MG PO Q6H PRN for BREAKTHROUGH PAIN for 14 Days, #20 TAB 0 Refills Prov: MIRIAM HUBER 09/04/17 Prednisone (Prednisone) 20 Mg Tab 40 MG PO DAILY for 7 Days, #14 TAB 0 Refills Prov: MIRIAM HUBER 09/04/17 Ondansetron (Ondansetron Odt) 4 Mg Tab.rapdis 4 MG PO Q6H PRN for NAUSEA/VOMITING, #20 TAB 0 Refills Prov: MIRIAM HUBER 09/04/17 Sulfasalazine (Sulfasalazine) 500 Mg Tablet 1000 MG PO QID for 14 Days, #120 TAB 0 Refills Prov: MIRIAM HUBER 09/04/17 Work/School Note: Work Release Form Date Seen in the Emergency Department: Sep 04, 2017 Return to Work: Sep 06, 2017 Restrictions: No Restrictions Copy Copies To 1: VENU GOODSON TITUS J Sep 04, 2017 11:02
[2017-09-04 11:05] LABS: BASOPHILS % (AUTO) 0 % (0-10); EOSINOPHILS # (AUTO) 0.1 10^3/uL (0.0-0.3); EOSINOPHILS % (AUTO) 1 % (0-10); HEMATOCRIT 44 % (40-54); HEMOGLOBIN 16.2 G/DL (13.3-17.7); LYMPHOCYTES # (AUTO) 1.9 X 10^3 (1.0-4.0); LYMPHOCYTES % (AUTO) 17 % (12-44); MEAN CORPUSCULAR HEMOGLOBIN 31 PG (25-34); MEAN CORPUSCULAR HGB CONC 37 G/DL (32-36); MEAN CORPUSCULAR VOLUME 85 FL (80-99); MONOCYTES % (AUTO) 8 % (0-12); NEUTROPHILS # (AUTO) 8.5 X 10^3 (1.8-7.8); NEUTROPHILS % (AUTO) 74 % (42-75); PLATELET COUNT 223 10^3/uL (130-400); RED BLOOD COUNT 5.23 10^6/uL (4.35-5.85); RED CELL DISTRIBUTION WIDTH 13.6 % (10.0-14.5); WHITE BLOOD COUNT 11.4 10^3/uL (4.3-11.0)
[2017-09-04] MEDS ORDERED: IOHEXOL 350 MG/ML 100 ML (OMNIPAQUE 350) VIAL IV ONE (11:15)
[2017-09-04] MEDS ORDERED: NS 100 ML (IVPB) BAG IV ONE (11:15)
[2017-09-04 11:23] LABS: ALANINE AMINOTRANSFERASE 36 U/L (0-55); ALBUMIN 4.6 GM/DL (3.2-4.5); ALKALINE PHOSPHATASE 82 U/L (40-136); BILIRUBIN,TOTAL 0.6 MG/DL (0.1-1.0); BUN/CREATININE RATIO 13; CALCIUM 9.9 MG/DL (8.5-10.1); CARBON DIOXIDE 20 MMOL/L (21-32); CHLORIDE 111 MMOL/L (98-107); CREATININE SERUM 0.83 MG/DL (0.60-1.30); GFR ESTIMATED > 60; GLUCOSE 97 MG/DL (70-105); LIPASE 21 U/L (8-78); MAGNESIUM 2.3 MG/DL (1.8-2.4); POTASSIUM 4.4 MMOL/L (3.6-5.0); SODIUM 142 MMOL/L (135-145); TOTAL PROTEIN 7.7 GM/DL (6.4-8.2)
--- NOTE | 2017-09-04 11:56 | Diagnostic Imaging Report ---
PROCEDURE: CT abdomen and pelvis with contrast, rule out appendicitis. TECHNIQUE: Multiple contiguous axial images were obtained through the abdomen and pelvis after the administration of intravenous contrast. INDICATION: Right lower quadrant pain, nausea, and vomiting. COMPARISON: June 07, 2015. FINDINGS: The visualized lung bases are clear. The liver and spleen are unremarkable. The adrenal glands are unremarkable. The pancreas is unremarkable. The gallbladder is unremarkable. Main portal vein is patent. The bilateral kidneys and ureters are unremarkable. No aneurysmal dilatation of the abdominal aorta. The urinary bladder is unremarkable. The appendix is unremarkable. No bowel obstruction or pneumatosis. No significant adenopathy, free air, or free fluid within the abdomen or pelvis. No acute osseous abnormality. IMPRESSION: No acute abnormality identified. In particular, the appendix is unremarkable. Dictated by: Dictated on workstation # [id number]
[2017-09-04] MEDS ORDERED: MESALAMINE 250 MG (PENTASA) CAP PO SCH (12:30)
[2017-09-04] MEDS ORDERED: methylPREDNISolone 40 MG/ML (Solu-MEDROL) VIAL IV ONE (12:30)
[2017-09-04] MEDS ORDERED: SULF500T7 PO (12:43)
[2017-09-04] MEDS ORDERED: ONDA4TAB11 PO (12:43)
[2017-09-04] MEDS ORDERED: PRD20T PO (12:43)
[2017-09-04] MEDS ORDERED: TRAM50TA2 PO (12:43)
[2017-09-04 12:54] VITALS: BP 129/83
== END 2017-09-04 12:54 | disposition home or self-care (01) ==
LOC: EDUNIT# 10:18 → ER 10:21
DX: K51.90 Ulcerative colitis, unspecified, without complications (principal); E78.00 Pure hypercholesterolemia, unspecified; I10 Essential (primary) hypertension; G43.909 Migraine, unspecified, not intractable, without status migrainosus; K21.9 Gastro-esophageal reflux disease without esophagitis; Z87.19 Personal history of other diseases of the digestive system; Z90.89 Acquired absence of other organs; Z87.448 Personal history of other diseases of urinary system
CPT/HCPCS: 36415; 74177; 80053; 83690; 83735; 85025; 96361; 96374; 96375

== ENCOUNTER → 2020-10-28 | Outpatient (CLI) | payer SELFPAY ==
[~2020-10-28] MED LIST changes: +ONDA4TAB11 PO; +SIMV20TA26 PO; -SIMV20TA3 PO; +SLF500T PO; +TRM50T PO
[2020-10-28 13:10] LABS: SEMEN VOLUME 5.2 ML (1.5-5.0)
== END ==
LOC: LAB 12:43
PROVIDERS: ATTEND Obstetrics & Gynecology
DX: R07.89 Other chest pain (principal)
CPT/HCPCS: 89320